=== PATIENT | female | born 1945 | race Caucasian/White ===

== ENCOUNTER → 2020-06-02 14:37 | Outpatient (BNVA) | payer MEDICARE, MEDICAID, SELFPAY | PROVIDERS: PCP Internal Medicine; Referring Provider Internal Medicine; Visit Provider Internal Medicine Cardiovascular Disease | DX: I42.9 Cardiomyopathy, unspecified (principal); I10 Essential (primary) hypertension; Z88.5 Allergy status to narcotic agent; Z88.2 Allergy status to sulfonamides; Z88.8 Allergy status to other drugs, medicaments and biological substances; Z79.82 Long term (current) use of aspirin; Z79.899 Other long term (current) drug therapy | CPT/HCPCS: 99214 ==

== ENCOUNTER 2020-06-17 09:47 | Outpatient (REF) | payer MEDICARE, MEDICAID, SELFPAY ==
[2020-06-17 12:42] LABS: Creatinine Urine 183.93 mg/dL; Microalbum/Creatinine Ratio Ur 16.3 ug/mg cr
[2020-06-17 13:40] LABS: Alanine Aminotransferase 38 U/L (0-31); Albumin Level 4.7 g/dL (3.5-5.0); Alkaline Phosphatase 121 U/L (39-117); Anion Gap 15 (12-20); Aspartate Amino Transferase 35 U/L (5-31); Bilirubin Total 0.6 mg/dL (0.0-1.0); Blood Urea Nitrogen 11 mg/dL (9-16); Calcium 9.5 mg/dL (8.4-10.2); Carbon Dioxide 26 mmol/L (22-29); Chloride 105 mmol/L (96-108); Cholesterol 243 mg/dL; Estimated Glomerular Filt Rate > 60; Glucose Fasting 103 mg/dL (60-99); HDL Cholesterol 45 mg/dL; LDL Cholesterol Calculated 169 mg/dl; Potassium 4.4 mmol/l (3.3-5.1); Sodium 142 mmol/L (135-145); Total Protein 7.6 g/dL (6.5-8.0); Triglycerides 146 mg/dL
[2020-06-17 17:43] LABS: Estimated Average Glucose 128 mg/dL; Hemoglobin A1c % 6.1 %
== END 2020-06-17 09:48 | disposition home or self-care (01) ==
LOC: HO.LAB 09:47
PROVIDERS: Visit Provider Internal Medicine
DX: E11.9 Type 2 diabetes mellitus without complications (principal); R07.89 Other chest pain
CPT/HCPCS: 80053; 80061; 82043; 83036

== ENCOUNTER → 2020-09-10 12:39 | Outpatient (REF) | payer MEDICARE, MEDICAID, SELFPAY ==
--- NOTE | 2020-09-10 12:42 | CA_ITS ---
Transthoracic Echocardiogram Patient (Last, First, Middle): Kristan Morel, Gender: Female Date of : 1945 Age: 74 Procedure Date: 09/10/2020 Procedure Type: Transthoracic Echocardiogram Location: OP Height: 157.48 cm Weight: 58.97 kg BSA: 1.59 m2 Heart Rate: bpm BP: 130 / 82 mmHg Machine Steak Tenderizer: SEAN Philip MD: Dimas Negro MD Symptoms: I42.9 - Cardiomyopathy, unspecified Study Quality: Good Conclusions: - The left ventricular systolic function is borderline reduced. The visually estimated ejection fraction is between 45-50%. - Normal right ventricular cavity size and systolic function. Findings Left Ventricle Normal left ventricular cavity size. There is mildly increased left ventricular wall thickness. The left ventricular systolic function is borderline reduced. The visually estimated ejection fraction is between 45 50%. There is no evidence of regional wall motion abnormalities. Abnormal diastolic function is noted. Spectral Doppler is indicative of an impaired relaxation filling pattern. Right Ventricle Normal right ventricular cavity size and systolic function. Atria The left atrium is normal in size. Interatrial shunt cannot be excluded. Aortic Valve Normal aortic valve structure and function. There is no aortic valve stenosis. There is no aortic valve regurgitation. Mitral Valve Normal mitral valve structure and function. There is trace mitral valve regurgitation. There is no mitral valve stenosis. Pulmonic Valve Normal pulmonic valve structure and function. There is no pulmonic valve regurgitation. Tricuspid Valve Normal tricuspid valve structure and function. There is trace tricuspid valve regurgitation. Normal right atrial pressure. There is no evidence of pulmonary hypertension. Great Vessels All visible segments of the aorta are normal in size. The visualized portions of the pulmonary artery and branches are normal. Venous The inferior vena cava is normal in size and collapses greater than 50% with inspiration. Pericardium/Pleural There is no evidence of pericardial effusion. Prior Study Comparison Changes noted compared to prior study dated: 04/12/2020. EF 45-50% now. Measurements 2D Linear Measurements IVSd: 0.95 0.6-0.9/0.6-1.0 cm LVIDd: 4.45 3.9-5.3/4.2-5.9 cm LVIDd Index: 2.80 2.4-3.2/2.2-3.1 cm/m2 LVIDs: 3.34 2.0-3.6 cm LVPWd: 0.95 0.7-1.1 cm Ao Root: 2.80 2.1-3.5 cm LA Diam: 3.20 2.7-3.8/3.0-4.0 cm LAIDs Index: 2.01 1.5-2.3 cm/m2 LV Mass: 174.02 67-162/88-224 g LV Mass Index: 109.44 43-95/49-115 g/m2 LVOT Diam: 2.00 3.0+(-)1.3 cm 2D Systolic Function EF 4C: 45.40 >55% EF 2C: 53.20 >55% EF BiP: 49.20 >55% Mitral Valve E'Lateral: 4.13 E'Medial: 3.70 Aortic Valve AoV Pk Vincent: 1.53 AoV Mn Vincent: 1.04 AoV VTI: 0.28 AoV Pk Grad: 9.00 Aov Mn Grad: 5.00 MAHESH Cont.VTI: 1.85 LVOT LVOT Pk Vincent: 0.95 LVOT Mn Vincent: 0.61 LVOT VTI: 0.17 LVOT Pk Grad: 4.00 LVOT Mn Grad: 2.00 LVOT Diam: 2.00 LVOT Area: 3.14 Diastolic Function E'Medial: 3.70 E' Laterial: 4.13 Tricuspid Valve TR Pk Vincent: 2.50 TR Pk Grad: 25.00 RA Press: 3.00 RVSP: 28.00 Great Vessels Aorta Ao Root-2D: 2.80 2.0-3.7 cm Ao Asc: 3.10 2.1-3.4 cm Ao Arch: 2.30 Updated in Other Vendor System with Status of Final Dimas Negro MD electronically signed on 09/11/2020 7:18:41 PM with status of Final
== END ==
LOC: HO.CARD 12:39
PROVIDERS: Visit Provider Internal Medicine Cardiovascular Disease
DX: I42.9 Cardiomyopathy, unspecified (principal)
CPT/HCPCS: 93306

== ENCOUNTER 2020-09-22 07:43 | Outpatient (REF) | payer MEDICARE, MEDICAID, SELFPAY ==
[2020-09-22 09:22] LABS: Alanine Aminotransferase 20 U/L (0-31); Albumin Level 4.6 g/dL (3.5-5.0); Alkaline Phosphatase 108 U/L (39-117); Anion Gap 15 (12-20); Aspartate Amino Transferase 26 U/L (5-31); Bilirubin Total 0.8 mg/dL (0.0-1.0); Blood Urea Nitrogen 12 mg/dL (9-16); Calcium 10.2 mg/dL (8.4-10.2); Carbon Dioxide 29 mmol/L (22-29); Chloride 101 mmol/L (96-108); Cholesterol 147 mg/dL; Estimated Glomerular Filt Rate > 60; Glucose Random 119 mg/dL (60-115); HDL Cholesterol 57 mg/dL; LDL Cholesterol Calculated 73 mg/dl; Potassium 4.2 mmol/L (3.3-5.1); Sodium 141 mmol/L (135-145); Total Protein 7.6 g/dL (6.5-8.0); Triglycerides 86 mg/dL
[2020-09-22 09:40] LABS: Estimated Average Glucose 126 mg/dL; Hemoglobin A1C 150.9652 umol/L
[2020-09-22 09:43] LABS: Thyroid Stimulating Hormone 2.03 uIU/mL (0.32-4.0)
[2020-09-22 09:46] LABS: Vitamin B12 388 pg/mL (200-900)
== END 2020-09-22 07:44 | disposition home or self-care (01) ==
LOC: HO.LAB 07:43
PROVIDERS: PCP Internal Medicine; Visit Provider Internal Medicine
DX: E11.9 Type 2 diabetes mellitus without complications (principal); E78.00 Pure hypercholesterolemia, unspecified; F41.8 Other specified anxiety disorders; R63.0 Anorexia; R63.4 Abnormal weight loss
CPT/HCPCS: 36415; 80053; 80061; 82607; 83036; 84443

== ENCOUNTER → 2020-09-29 12:48 | Outpatient (BNVA) | payer MEDICARE, MEDICAID, SELFPAY | PROVIDERS: PCP Internal Medicine; Visit Provider Internal Medicine Cardiovascular Disease | DX: I42.9 Cardiomyopathy, unspecified (principal); I10 Essential (primary) hypertension | CPT/HCPCS: 93005; 99212 ==

== ENCOUNTER 2020-10-04 08:36 | Outpatient (REF) | payer MEDICARE, MEDICAID, SELFPAY ==
--- NOTE | ~2020-10-04 | MM_ITS ---
EXAMINATION: MM DIAGNOSTIC DIGITAL BREAST TOMOSYNTHESIS, LEFT CLINICAL INFORMATION: Short interval six-month probable benign fibroglandular densities upper outer left breast. Assess for developing density. The lifetime risk of breast cancer based on the Tyrer-Cuzick Model is 2%. COMPARISON: Mammography: 03/31/2020, 03/19/2020 (BI-RADS 0), 03/14/2019, 01/28/2018, 01/25/2017; ultrasound left breast 03/31/2020. TECHNIQUE: Digital breast tomosynthesis is performed in both the craniocaudal and mediolateral oblique views along with computer-aided detection (CAD). Synthesized 2D images are generated from the tomosynthesis. FINDINGS: There are scattered areas of fibroglandular density (ACR BI-RADS breast composition Category b). Parenchymal pattern is similar to prior studies. There is no interval developing density or mass or architectural abnormality from prior diagnostic exam. There are no abnormal calcifications. The axilla and skin contours are unremarkable. Left breast will be reassessed again at time of annual bilateral mammography, due in 6 months. Results are provided to the patient at time of visit by the technologist. MM/MM tomosynthesis diagnostic LT IMPRESSION: No significant changes from prior studies. No developing density. ASSESSMENT: BI-RADS 3: Probably Benign RECOMMENDATION: Diagnostic mammography at time of annual bilateral exam, due in 6 months. This patient's information was entered into a reminder system with a target due date for their next mammogram.
== END 2020-10-04 08:37 | disposition home or self-care (01) ==
LOC: HO.MAMMO 08:36
PROVIDERS: PCP Internal Medicine; Visit Provider Internal Medicine
DX: R92.2 Inconclusive mammogram (principal)
CPT/HCPCS: 77061; 77065

== ENCOUNTER 2020-11-19 13:48 | Outpatient (REF) | payer MEDICARE, MEDICAID, SELFPAY | END 2020-11-19 13:49 | disposition home or self-care (01) | LOC: HO.LAB 13:48 | PROVIDERS: Visit Provider Internal Medicine | DX: Z20.822 Contact with and (suspected) exposure to COVID-19 (principal) | CPT/HCPCS: C9803; U0003; U0005 ==

== ENCOUNTER → 2021-02-02 12:50 | Outpatient (BNVA) | payer MEDICARE, MEDICAID, SELFPAY | PROVIDERS: PCP Internal Medicine; Referring Provider Internal Medicine; Visit Provider Internal Medicine Cardiovascular Disease | DX: I42.9 Cardiomyopathy, unspecified (principal); I10 Essential (primary) hypertension; R07.9 Chest pain, unspecified; R06.00 Dyspnea, unspecified; Z88.5 Allergy status to narcotic agent; Z88.2 Allergy status to sulfonamides; Z79.82 Long term (current) use of aspirin; Z79.899 Other long term (current) drug therapy | CPT/HCPCS: 99212 ==

== ENCOUNTER 2021-03-21 09:10 | Outpatient (REF) | payer MEDICARE, MEDICAID, SELFPAY ==
[2021-03-21 10:07] LABS: MANUAL DIFF FLAG NO
[2021-03-21 10:13] LABS: Basophils Absolute Auto 0.1 X10*3/uL (0.0-0.2); Basophils Percent Auto 0.6 % (0-2); Eosinophils Absolute Auto 0.1 X10*3/uL (0.0-0.4); Eosinophils Percent Auto 1.4 % (0-4); Hemoglobin 14.6 g/dl (12.0-16.0); Imm Gran Abs Auto 0.03 X10*3/uL (0.00-0.03); Imm Gran Pct Auto 0.3 % (0.0-0.4); Lymphocytes Absolute Auto 2.4 X10*3/uL (1.2-4.9); Mean Corpuscular HGB Conc 32.4 g/dl (31.0-35.0); Mean Corpuscular Hemoglobin 29.9 pg (27.0-33.0); Mean Platelet Volume 9.7 fL (9.4-12.3); Monocytes Absolute Auto 0.8 X10*3/uL (0.1-1.2); Neutrophils Absolute Auto 6.6 X10*3/uL (2.0-8.3); Neutrophils Percent Auto 65.7 % (45-73); Platelet Count 329 X10*3/uL (160-400); Red Blood Count 4.89 X10*6/uL (4.20-5.50); Red Cell Distribution Width 13.9 % (11.0-16.0); White Blood Count 10.1 X10*3/uL (4.8-10.8)
[2021-03-21 10:35] LABS: Alanine Aminotransferase 17 U/L (0-31); Albumin Level 4.5 g/dL (3.5-5.0); Alkaline Phosphatase 81 U/L (39-117); Anion Gap 12 (12-20); Aspartate Amino Transferase 25 U/L (5-31); Bilirubin Total 0.4 mg/dL (0.0-1.0); Blood Urea Nitrogen 19 mg/dL (9-16); Carbon Dioxide 29 mmol/L (22-29); Chloride 105 mmol/L (96-108); Cholesterol 144 mg/dL; Estimated Average Glucose 120 mg/dL; Estimated Glomerular Filt Rate > 60; Glucose Random 110 mg/dL (60-115); HDL Cholesterol 53 mg/dL; Hemoglobin A1C 149.2109 umol/L; Hemoglobin A1c % 5.8 %; LDL Cholesterol Calculated 78 mg/dl; Potassium 4.2 mmol/L (3.3-5.1); Sodium 142 mmol/L (135-145); Total Protein 7.4 g/dL (6.5-8.0); Triglycerides 69 mg/dL
[2021-03-21 10:46] LABS: Creatinine Urine 178.32 mg/dL; Microalbum/Creatinine Ratio Ur 24.1 ug/mg cr
== END 2021-03-21 09:11 | disposition home or self-care (01) ==
LOC: HO.LAB 09:10
PROVIDERS: PCP Internal Medicine; Visit Provider Internal Medicine
DX: E11.9 Type 2 diabetes mellitus without complications (principal); E78.00 Pure hypercholesterolemia, unspecified; F33.40 Major depressive disorder, recurrent, in remission, unspecified; I10 Essential (primary) hypertension
CPT/HCPCS: 36415; 80053; 80061; 82043; 83036; 85025

== ENCOUNTER 2021-04-07 12:57 | Outpatient (REF) | payer MEDICARE, MEDICAID, SELFPAY ==
--- NOTE | ~2021-04-07 | MM_ITS ---
EXAMINATION: MM DIAGNOSTIC DIGITAL BREAST TOMOSYNTHESIS, BILATERAL CLINICAL INFORMATION: Due for yearly. Also follow-up probable benign fibronodular densities upper outer left breast. The lifetime risk of breast cancer based on the Tyrer-Cuzick Model is 2%. COMPARISON: Mammography: 10/04/2020, 03/31/2020, 03/19/2020 (BI-RADS 0), 03/14/2019, 01/28/2018, 01/25/2017; targeted left breast ultrasound 03/31/2020. TECHNIQUE: Digital breast tomosynthesis is performed in both the craniocaudal and mediolateral oblique views along with computer-aided detection (CAD). Synthesized 2D images are generated from the tomosynthesis. FINDINGS: There are scattered areas of fibroglandular density (ACR BI-RADS breast composition Category b). Breast parenchymal pattern is similar to prior exams. Scattered fibronodular asymmetries upper outer left breast and central inner left breast are similar to prior diagnostic studies. There is no developing density. Left breast will be reassessed again in 6 months. Neither breast shows interval mass or architectural abnormality. There are no abnormal calcifications. The skin contours are smooth. Results are provided to the patient at time of visit by the technologist. MM/MM tomosynthesis diagnostic BI IMPRESSION: No significant changes from prior exams. ASSESSMENT: BI-RADS 3: Probably Benign RECOMMENDATION: Diagnostic left mammography in 6 months. This patient's information was entered into a reminder system with a target due date for their next mammogram.
== END 2021-04-07 12:58 | disposition home or self-care (01) ==
LOC: HO.MAMMO 12:57
PROVIDERS: Visit Provider Internal Medicine
DX: R92.2 Inconclusive mammogram (principal)
CPT/HCPCS: 77062; 77066

== ENCOUNTER → 2021-07-27 13:39 | Outpatient (BNVA) | payer MEDICARE, MEDICAID, SELFPAY | PROVIDERS: PCP Internal Medicine; Visit Provider Internal Medicine Cardiovascular Disease | DX: I10 Essential (primary) hypertension (principal); I42.9 Cardiomyopathy, unspecified | CPT/HCPCS: 99212 ==

== ENCOUNTER → 2021-09-09 09:11 | Outpatient (REF) | payer MEDICARE, MEDICAID, SELFPAY ==
--- NOTE | 2021-09-09 09:15 | CA_ITS ---
Transthoracic Echocardiogram Patient (Last, First, Middle): Kristan Morel, Gender: Female Date of : 1945 Age: 75 Procedure Date: 09/09/2021 Procedure Type: Transthoracic Echocardiogram Location: OP Height: 149.86 cm Weight: 56.25 kg BSA: 1.50 m2 Heart Rate: bpm BP: 116 / 60 mmHg Yard Attendant: Referring MD: Dimas Negro MD Systems Developer: Lamonte Delgado MD Symptoms: I42.9 - Cardiomyopathy, unspecified Study Quality: Fair ECG Rhythm: Sinus Conclusions: - 1. Mild to moderate LV systolic dysfunction with LVEF of 40-45% 2. Moderate left atrial enlargement 3. Mild to moderate mitral regurgitation 4. Normal RVSp 5. No pericardial effusion Findings Left Ventricle Normal left ventricular cavity size. There is normal left ventricular wall thickness. The left ventricular systolic function is mild to moderately decreased. The visually estimated ejection fraction is between 40-45%. Spectral Doppler is indicative of an impaired relaxation filling pattern. Elevated filling pressures. E/E prime ratio is >15, consistent with elevated filling pressures. Right Ventricle Normal right ventricular cavity size and systolic function. Atria The left atrium is moderately dilated. There is no evidence of interatrial shunt. The right atrium is mildly dilated. Aortic Valve Normal aortic valve structure and function. There is no aortic valve stenosis. There is no aortic valve regurgitation. Mitral Valve Normal mitral valve structure and function. There is mild to moderate mitral valve regurgitation. There is no mitral valve stenosis. Pulmonic Valve The pulmonic valve was not well visualized. Tricuspid Valve Normal tricuspid valve structure. There is mild tricuspid valve regurgitation. Normal right atrial pressure. There is no evidence of pulmonary hypertension. Great Vessels All visible segments of the aorta are normal in size. The pulmonary artery was not well visualized. Venous The inferior vena cava is normal in size and collapses greater than 50% with inspiration. Pericardium/Pleural There is no evidence of pericardial effusion. Prior Study Comparison Changes noted compared to prior study dated: 09/10/2020. LV systolic function is reduced Measurements 2D Linear Measurements IVSd: 1.16 0.6-0.9/0.6-1.0 cm LVIDd: 5.22 3.9-5.3/4.2-5.9 cm LVIDd Index: 3.48 2.4-3.2/2.2-3.1 cm/m2 LVIDs: 4.47 2.0-3.6 cm LVPWd: 1.13 0.7-1.1 cm Ao Root: 2.70 2.1-3.5 cm LA Diam: 4.00 2.7-3.8/3.0-4.0 cm LAIDs Index: 2.67 1.5-2.3 cm/m2 LV Mass: 292.58 67-162/88-224 g LV Mass Index: 195.05 43-95/49-115 g/m2 LVOT Diam: 1.90 3.0+(-)1.3 cm 2D Systolic Function EF 4C: 39.70 >55% EF 2C: 43.60 >55% EF BiP: 42.70 >55% Mitral Valve MV Pk E: 0.90 MV PK A: 1.10 MV Decel Time: 80.00 E/A: 0.80 E'Lateral: 4.57 E'Medial: 3.81 E/E' Med: 23.60 E/E' Lat: 19.70 PHT: 23.00 MVA PHT: 9.57 Decel [place]: 11.25 Aortic Valve AoV Pk Vincent: 1.40 AoV Mn Vincent: 0.94 AoV VTI: 0.31 AoV Pk Grad: 8.00 Aov Mn Grad: 4.00 MAHESH Cont.VTI: 1.55 LVOT LVOT Pk Vincent: 0.77 LVOT Mn Vincent: 0.50 LVOT VTI: 0.17 LVOT Pk Grad: 2.00 LVOT Mn Grad: 1.00 LVOT Diam: 1.90 LVOT Area: 2.84 Diastolic Function MV Pk E: 0.90 MV Pk A: 1.10 E/A: 0.80 E'Medial: 3.81 E/E' Med: 23.60 E' Laterial: 4.57 E/E' Lat: 19.70 Tricuspid Valve TR Pk Vincent: 2.75 TR Pk Grad: 30.00 RA Press: 3.00 RVSP: 33.00 Great Vessels Aorta Ao Root-2D: 2.70 2.0-3.7 cm Ao Asc: 3.30 2.1-3.4 cm Pulmonary Valve PV Pk Vincent: 0.94 Peak PV Grad: 4.00 Updated in Other Vendor System with Status of Final Lamonte Delgado MD electronically signed on 09/10/2021 10:21:32 AM with status of Final
== END ==
LOC: HO.CARD 09:11
PROVIDERS: PCP Internal Medicine; Visit Provider Internal Medicine Cardiovascular Disease
DX: I42.9 Cardiomyopathy, unspecified (principal)
CPT/HCPCS: 93306

== ENCOUNTER 2021-09-22 06:38 | Outpatient (REF) | payer MEDICARE, MEDICAID, SELFPAY | END 2021-09-22 06:39 | disposition home or self-care (01) | LOC: HO.HOSX 06:38 | PROVIDERS: Visit Provider Physician Assistant | DX: Z13.89 Encounter for screening for other disorder (principal) ==

== ENCOUNTER 2021-10-10 12:32 | Outpatient (REF) | payer MEDICARE, MEDICAID, SELFPAY ==
--- NOTE | ~2021-10-10 | MM_ITS ---
EXAMINATION: MM DIAGNOSTIC DIGITAL BREAST TOMOSYNTHESIS, LEFT CLINICAL INFORMATION: Short interval follow-up probable benign fibronodular densities upper outer and central inner left breast. The lifetime risk of breast cancer based on the Tyrer-Cuzick Model is 2%. COMPARISON: Mammography: 04/07/2021, 10/04/2020, 03/31/2020, 03/19/2020 (BI-RADS 0), 03/14/2019, targeted left breast ultrasound 03/31/2020. TECHNIQUE: Digital breast tomosynthesis is performed in both the craniocaudal and mediolateral oblique views along with computer-aided detection (CAD). Synthesized 2D images are generated from the tomosynthesis. FINDINGS: There are scattered areas of fibroglandular density (ACR BI-RADS breast composition Category b). Parenchymal pattern is similar to prior exams. Scattered fibronodular densities are similar to prior diagnostic exams. There is no developing density or interval mass or architectural abnormality. No abnormal calcifications. The axilla and skin contours are unremarkable. Left breast will be reassessed again at time of annual bilateral mammography, due in 6 months to conclude long-term surveillance. Results are provided to the patient at time of visit by the technologist. MM/MM tomosynthesis diagnostic LT IMPRESSION: No significant changes from prior diagnostic studies. No developing density. ASSESSMENT: BI-RADS 3: Probably Benign RECOMMENDATION: Diagnostic mammography at time of annual bilateral mammography, due in 6 months. This patient's information was entered into a reminder system with a target due date for their next mammogram.
== END 2021-10-10 12:33 | disposition home or self-care (01) ==
LOC: HO.MAMMO 12:32
PROVIDERS: PCP Internal Medicine; Visit Provider Internal Medicine
DX: R92.2 Inconclusive mammogram (principal)
CPT/HCPCS: 77061; 77065

== ENCOUNTER → 2021-10-20 13:39 | Outpatient (BNVA) | payer MEDICARE, MEDICAID, SELFPAY | PROVIDERS: PCP Internal Medicine; Referring Provider Internal Medicine; Visit Provider Internal Medicine Cardiovascular Disease | DX: I42.9 Cardiomyopathy, unspecified (principal); I10 Essential (primary) hypertension | CPT/HCPCS: 99212 ==

== ENCOUNTER 2021-10-21 07:41 | Outpatient (REF) | payer MEDICARE, MEDICAID, SELFPAY ==
--- NOTE | ~2021-10-21 | XR_ITS ---
EXAMINATION: XR SHOULDER, LEFT CLINICAL INFORMATION: Left shoulder pain. COMPARISON: Left scapular radiographs dated 12/09/2013. TECHNIQUE: AP, scapular Y, and axillary views of the left shoulder. FINDINGS: No acute fracture or dislocation. Acromioclavicular marginal osteophytes with prominent subacromial spurring. Small inferior glenoid marginal osteophytes. Elevation of the humeral head, likely indicating an underlying rotator cuff tendon tear. No concerning lytic or blastic osseous lesion. XR/XR shoulder LT min 2V IMPRESSION: 1. Moderate acromioclavicular osteoarthritis with prominent subacromial spurring. 2. Mild glenohumeral osteoarthritis. Elevation of the humeral head, likely indicating underlying rotator cuff tendon tear.
== END 2021-10-21 07:42 | disposition home or self-care (01) ==
LOC: HO.HOSX 07:41
PROVIDERS: Visit Provider Physician Assistant
DX: M19.012 Primary osteoarthritis, left shoulder (principal)
CPT/HCPCS: 20610; 73030; 99202; J1040

== ENCOUNTER 2021-11-21 09:06 | Outpatient (REF) | payer MEDICARE, MEDICAID, SELFPAY ==
[2021-11-21 10:19] LABS: Estimated Average Glucose 131 mg/dL; Hemoglobin A1c % 6.2 %
[2021-11-21 10:20] LABS: Alanine Aminotransferase 20 U/L (0-31); Albumin Level 4.3 g/dL (3.5-5.0); Alkaline Phosphatase 74 U/L (39-117); Anion Gap 12 (12-20); Aspartate Amino Transferase 21 U/L (5-31); Bilirubin Total 0.3 mg/dL (0.0-1.0); Blood Urea Nitrogen 17 mg/dL (9-16); Calcium 9.8 mg/dL (8.4-10.2); Carbon Dioxide 28 mmol/L (22-29); Chloride 105 mmol/L (96-108); Estimated Glomerular Filt Rate > 60; Glucose Random 123 mg/dL (60-115); Potassium 4.6 mmol/L (3.3-5.1); Sodium 140 mmol/L (135-145); Total Protein 7.2 g/dL (6.5-8.0)
== END 2021-11-21 09:07 | disposition home or self-care (01) ==
LOC: HO.LAB 09:06
PROVIDERS: PCP Internal Medicine; Visit Provider Internal Medicine
DX: E11.9 Type 2 diabetes mellitus without complications (principal); E78.00 Pure hypercholesterolemia, unspecified; I10 Essential (primary) hypertension; M25.512 Pain in left shoulder
CPT/HCPCS: 36415; 80053; 83036

== ENCOUNTER 2021-11-30 09:54 | Outpatient (REF) | payer MEDICARE, MEDICAID, SELFPAY ==
--- NOTE | ~2021-11-30 | MR_ITS ---
EXAMINATION: MRI SHOULDER WITHOUT CONTRAST, LEFT CLINICAL INFORMATION: Shoulder pain. Patient reports no prior left shoulder surgery.. COMPARISON: X-ray 10/21/2021. MRI 11/03/2011. TECHNIQUE: MRI of the shoulder without contrast is performed in a 1.5 Antonette high-field scanner. FINDINGS: Motion artifact degrading images, limiting evaluation. CORACOACROMIAL ARCH: Moderate acromioclavicular arthritis. There is fluid in the subacromial subdeltoid space. Undersurface of the acromion is concave. ROTATOR CUFF: Full-thickness tear of the entire supraspinatus and infraspinatus tendons. Tendon retraction to the level of the glenoid. Teres minor is intact. Thinning of the subscapularis tendon. There is laxity of the tendon seen, which may be related to humeral positioning. ROTATOR CUFF MUSCLES: Myotendinous retraction of the supraspinatus and infraspinatus, with associated atrophy. Atrophy of the subscapularis muscles.. BICEPS TENDON: Not visualized, suggestive of high-grade or full-thickness tear. LABRUM/CAPSULE: Motion artifact limiting evaluation. There is small caliber of the labrum. Superior labrum free edge fraying/tearing. GLENOHUMERAL JOINT/MARROW: Superior subluxation of the humeral head respect to glenoid. Subcortical cyst/edema in the greater tuberosity.. Small effusion. MR/MR shoulder LT wo con IMPRESSION: 1. Complete tears of the supraspinatus and infraspinatus tendons with retraction. 2. Subscapularis tendon thinning. There is laxity of the tendon, which could be related to distal tearing versus positioning of the humeral head. 3. Biceps tendon likely high-grade or full-thickness tear. 4. Superior labral small caliber, with free edge fraying/tearing. 5. Moderate acromioclavicular arthritis.
== END 2021-11-30 09:55 | disposition home or self-care (01) ==
LOC: HO.MRI 09:54
PROVIDERS: Visit Provider Physician Assistant
DX: S46.002D Unspecified injury of muscle(s) and tendon(s) of the rotator cuff of left shoulder, subsequent encounter (principal)
CPT/HCPCS: 73221

== ENCOUNTER → 2021-12-05 13:31 | Outpatient (BNVA) | payer MEDICARE, MEDICAID, SELFPAY | PROVIDERS: PCP Internal Medicine; Visit Provider Physician Assistant | DX: M19.012 Primary osteoarthritis, left shoulder (principal); M75.102 Unspecified rotator cuff tear or rupture of left shoulder, not specified as traumatic | CPT/HCPCS: 99212 ==

== ENCOUNTER 2022-02-18 09:28 | Outpatient (REF) | payer MEDICARE, MEDICAID, SELFPAY ==
[2022-02-18 09:38] LABS: MANUAL DIFF FLAG NO
[2022-02-18 09:56] LABS: Basophils Absolute Auto 0.1 X10*3/uL (0.0-0.2); Basophils Percent Auto 0.6 % (0-2); Eosinophils Absolute Auto 0.2 X10*3/uL (0.0-0.4); Hematocrit 44.2 % (37.0-47.0); Hemoglobin 14.6 g/dl (12.0-16.0); Imm Gran Abs Auto 0.02 X10*3/uL (0.00-0.03); Imm Gran Pct Auto 0.2 % (0.0-0.4); Lymphocytes Absolute Auto 2.3 X10*3/uL (1.2-4.9); Lymphocytes Percent Auto 25.3 % (20-40); Mean Corpuscular Hemoglobin 30.1 pg (27.0-33.0); Mean Corpuscular Volume 91.1 fL (80.0-98.0); Mean Platelet Volume 9.5 fL (9.4-12.3); Monocytes Absolute Auto 0.6 X10*3/uL (0.1-1.2); Monocytes Percent Auto 6.6 % (2-11); Neutrophils Absolute Auto 5.9 x10*3/uL (2.0-8.3); Neutrophils Percent Auto 65.3 % (45-73); Platelet Count 332 X10*3/uL (160-400); Red Blood Count 4.85 X10*6/uL (4.20-5.50)
[2022-02-18 10:05] LABS: Estimated Average Glucose 123 mg/dL; Hemoglobin A1c % 5.9 %
[2022-02-18 10:16] LABS: Alanine Aminotransferase 33 U/L (0-31); Albumin Level 4.6 g/dL (3.5-5.0); Alkaline Phosphatase 72 U/L (39-117); Anion Gap 14 (12-20); Aspartate Amino Transferase 30 U/L (5-31); Bilirubin Total 0.6 mg/dL (0.0-1.0); Blood Urea Nitrogen 19 mg/dL (9-16); Calcium 9.9 mg/dL (8.4-10.2); Carbon Dioxide 23 mmol/L (22-29); Chloride 106 mmol/L (96-108); Cholesterol 192 mg/dL; Estimated Glomerular Filt Rate > 60; Glucose Random 119 mg/dL (60-115); HDL Cholesterol 46 mg/dL; LDL Cholesterol Calculated 124 mg/dl; Potassium 4.1 mmol/L (3.3-5.1); Sodium 139 mmol/L (135-145); Total Protein 7.5 g/dL (6.5-8.0); Triglycerides 113 mg/dL
== END 2022-02-18 09:29 | disposition home or self-care (01) ==
LOC: HO.LAB 09:28
PROVIDERS: PCP Internal Medicine; Visit Provider Internal Medicine
DX: E11.9 Type 2 diabetes mellitus without complications (principal); H93.13 Tinnitus, bilateral; I10 Essential (primary) hypertension; L84 Corns and callosities
CPT/HCPCS: 36415; 80053; 80061; 83036; 85025

== ENCOUNTER → 2022-04-12 13:31 | Outpatient (BNVA) | payer MEDICARE, MEDICAID, SELFPAY | PROVIDERS: PCP Internal Medicine; Referring Provider Internal Medicine; Visit Provider Nurse Practitioner Family | DX: R07.89 Other chest pain (principal); I42.8 Other cardiomyopathies; I10 Essential (primary) hypertension; I44.7 Left bundle-branch block, unspecified; M19.012 Primary osteoarthritis, left shoulder | CPT/HCPCS: 93005; 99212 ==

== ENCOUNTER 2022-04-14 12:32 | Outpatient (REF) | payer MEDICARE, MEDICAID, SELFPAY ==
--- NOTE | ~2022-04-14 | MM_ITS ---
EXAMINATION: MM DIAGNOSTIC DIGITAL BREAST TOMOSYNTHESIS, BILATERAL CLINICAL INFORMATION: Due for yearly. Also follow-up probable benign nodularity upper outer left breast. The lifetime risk of breast cancer based on the Tyrer-Cuzick Model is 2%. COMPARISON: Mammography: 10/10/2021, 04/07/2021, 10/04/2020, 03/31/2020, 03/19/2020 (BI-RADS 0), 03/14/2019, 01/28/2018; left breast ultrasound 03/31/2020. TECHNIQUE: Digital breast tomosynthesis is performed in both the craniocaudal and mediolateral oblique views along with computer-aided detection (CAD). Synthesized 2D images are generated from the tomosynthesis. FINDINGS: There are scattered areas of fibroglandular density (ACR BI-RADS breast composition Category b). There is fine fibronodular parenchymal pattern similar to prior exams. Nodularity mid upper outer left breast is stable from prior exams and considered to be benign. There is no developing density or interval architectural changes. No abnormal calcifications. The axilla and skin contours are unremarkable. Results are provided to the patient at time of visit by the technologist. MM/MM tomosynthesis diagnostic BI IMPRESSION: No significant changes from prior studies. ASSESSMENT: BI-RADS 2: Benign RECOMMENDATION: Routine annual mammography screening. This patient's information was entered into a reminder system with a target due date for their next mammogram.
== END 2022-04-14 12:33 | disposition home or self-care (01) ==
LOC: HO.MAMMO 12:32
PROVIDERS: PCP Internal Medicine; Visit Provider Internal Medicine
DX: R92.2 Inconclusive mammogram (principal)
CPT/HCPCS: 77062; 77066

== ENCOUNTER 2022-04-21 07:47 | Emergency (ER) | payer MEDICARE, MEDICAID, SELFPAY ==
[2022-04-21 07:53] VITALS: BP 163/91; PULSE 91; RESP 16; TEMP 36.4; O2SAT 96; BMI 22.8
--- NOTE | 2022-04-21 08:54 | ED.ALLEREA ---
HPI - Allergic Reaction General Chief complaint: Allergic Reaction Stated complaint: allergic reaction Time Seen by Provider: 04/21/22 08:52 Source: patient and freelance interpreter/translator Mode of arrival: ambulatory Limitations: language barrier History of Present Illness HPI narrative: 76 yo female with history of HTN presents 2 days of itching rash to the face, arms, neck. Patient denies any new products, detergents, foods or medications. She is using calamine, [id number] itch cream and Benadryl with continued symptoms. Denies any difficulty breathing, cough, wheezing, abdominal cramping, vomiting or diarrhea Related Data Home Medications Medication Instructions Recorded Confirmed amlodipine 10 mg tablet 10 mg PO DAILY 06/02/20 04/14/22 metoprolol succinate 100 mg 100 mg PO DAILY 06/02/20 04/14/22 tablet,extended release 24 hr nitroglycerin 0.4 mg sublingual 0.4 mg sublingual Q5M PRN 06/02/20 04/14/22 tablet rosuvastatin 40 mg tablet 40 mg PO BEDTIME 06/02/20 04/14/22 losartan 100 1 tab PO DAILY 04/12/22 04/14/22 mg-hydrochlorothiazide 25 mg tablet Previous Rx's Medication Instructions Recorded aspirin 81 mg tablet,delayed 81 mg PO .daily #90 tabs 03/27/22 release hydrocortisone 2.5 % topical 1 appl topical TID PRN rash #28.35 04/21/22 ointment grams prednisone 20 mg tablet 40 mg PO DAILY #10 tabs 04/21/22 Allergies Allergy/AdvReac Type Severity Reaction Status Date / Time codeine Allergy Unknown UNKNOWN Verified 04/12/22 13:50 Sulfa (Sulfonamide Allergy Unknown RASH Verified 04/12/22 13:50 Antibiotics) FAREED Inhibitors AdvReac Unknown UNKNOWN Verified 04/12/22 13:50 Review of Systems Review of Systems: Yes all other systems are reviewed and are negative Constitutional: Constitutional: Reports no additional constitutional complaints, Denies body ache(s), Denies chills, Denies fever(s), Denies headache(s) and Denies weakness Eyes: Eyes: Reports no additional eye complaints and Denies change in vision ENT: Reports system reviewed and no additional complaints, except as documented, Denies dizziness, Denies headache(s), Denies nasal congestion, Denies nasal discharge and Denies neck pain Cardiovascular: Cardiovascular: Reports no additional cardiovascular complaints, Denies chest pain, Denies leg edema and Denies dyspnea Respiratory: Respiratory: Reports no additional respiratory complaints, Denies cough and Denies dyspnea Gastrointestinal: Gastrointestinal: Reports no additional gastrointestinal complaints, Denies abdominal pain, Denies diarrhea, Denies nausea and Denies vomiting Genitourinary: Genitourinary: Reports no additional female genitourinary complaints and Denies urinary incontinence Musculoskeletal: Musculoskeletal: Reports no additional musculoskeletal complaints, Denies back pain, Denies arthralgias, Denies joint swelling, Denies neck pain, Denies numbness and Denies tingling Integumentary/Breasts: Skin/Breast: Reports system reviewed and no additional complaints, except as docu and Reports rash Neurologic: Reports system reviewed and no additional complaints, except as documented, Denies dizziness, Denies headache(s), Denies numbness, Denies tingling and Denies weakness PMFSH Past Medical History Attestation statement: The following information was validated with the patient. Source: old records reviewed and nursing notes reviewed Medical History Cardiomyopathy Hypertension Surgical History History of section History of eye surgery Family History Family History Father Cardiovascular disease Mother No problems noted. Social History Social History Alcohol intake: never Patient Tobacco Use Status: Never used Tobacco Advance Directives: No Advance Directives Information Provided: Yes Current occupational status: disabled Current occupation: rt hand Physical Exam ED Vital Signs: Vital Signs - 24 hr 04/21/22 07:53 Temperature 97.5 F Pulse Rate 91 Respiratory Rate 16 Blood Pressure 163/91 H Pulse Oximetry 96 Oxygen Delivery Method Room Air BMI result Body Mass Index 22.8 Const General: cooperative, healthy appearing and comfortable Orientation/consciousness: patient oriented x3 Limitations: no limitations HENMT Other: Over the face including the ears and nose, anterior neck, posterior neck, upper arm there is a slight urticarial rash noted which is blanchable, nonpainful, non vesicular. Head: Yes normal to inspection Ears: hearing grossly normal bilaterally Mouth: Normal oral and palatal mucosa present, lip normal and tongue normal Throat: Yes posterior oropharynx normal, Yes tonsils normal and Yes uvula midline Eyes General: appearance normal, both eyes and all related structures Pupils: Equal, round and reactive pupils present Neck Other: no stridor Neck: Yes normal visual inspection Chest Chest palpation & inspection: normal inspection of the chest Resp Effort & Inspection: normal respiratory effort Auscultation: clear to auscultation bilaterally Cardio Rate: regular rate Rhythm: regular rhythm Peripheral pulses: Peripheral pulses 2+ throughout GI Inspection: Yes normal to inspection Palpation (GI): Soft to palpation and nontender Back/Spine/Pelvis Thoracic/Lumbar Spine: thoracic and lumbar spine normal to inspection Skin General skin exam: no rashes or lesions noted Neuro General: patient oriented x3 and moves all extremities Cranial nerves: Yes Equal, round and reactive pupils present Cognition (Neuro): normal cognition Gait exam (Neuro): Normal gait present Extrem General: Yes normal to inspection MDM - Allergic Reaction MDM Narrative Medical decision making narrative: Urticarial rash for 2 days despite using [id number] itch cream, p.r.n. Benadryl, calamine. No airway involvement. Lungs are clear. Will give brief course of prednisone, prescription hydrocortisone. Medical Records Attestation: I reviewed the patient's medical records. Lab Data Attestation: I reviewed the patient's lab results. Discharge Plan Discharge Clinical Impression: Contact dermatitis Patient Disposition: Home, Self-Care Instructions: Contact Dermatitis (ED) Additional Instructions: Continue benadryl Follow-up with PCP next week for persistent symptoms Prescriptions: New prednisone 20 mg tablet 40 mg PO DAILY Qty: 10 0RF hydrocortisone 2.5 % ointment 1 appl topical TID PRN (Reason: rash) Qty: 28.35 0RF No Action aspirin 81 mg tablet,delayed release (DR/EC) 81 mg PO .daily Qty: 90 3RF rosuvastatin 40 mg tablet 40 mg PO BEDTIME amlodipine 10 mg tablet 10 mg PO DAILY metoprolol succinate 100 mg tablet extended release 24 hr 100 mg PO DAILY nitroglycerin 0.4 mg tablet, sublingual 0.4 mg sublingual Q5M PRN Rx Instructions: do not exceed 3 doses per episode losartan-hydrochlorothiazide 100-25 mg tablet 1 tab PO DAILY Referrals: Anju Lockett MD [Primary Care Provider] - Print Language: Korean
== END 2022-04-21 09:44 | disposition home or self-care (01) ==
PROVIDERS: Emergency Provider Student in an Organized Health Care Education/Training Program; PCP Internal Medicine
DX: L25.3 Unspecified contact dermatitis due to other chemical products (principal)
CPT/HCPCS: 99282; 99283

== ENCOUNTER 2022-05-24 08:59 | Outpatient (REF) | payer MEDICARE, MEDICAID, SELFPAY ==
[2022-05-24 10:33] LABS: Estimated Average Glucose 146 mg/dL; Hemoglobin A1c % 6.7 %
[2022-05-24 10:53] LABS: Microalbum/Creatinine Ratio Ur 17.8 ug/mg cr
[2022-05-24 10:59] LABS: Alanine Aminotransferase 30 U/L (0-31); Albumin Level 4.4 g/dL (3.5-5.0); Alkaline Phosphatase 72 U/L (39-117); Anion Gap 15 (12-20); Aspartate Amino Transferase 34 U/L (5-31); Bilirubin Total 0.4 mg/dL (0.0-1.0); Blood Urea Nitrogen 16 mg/dL (9-16); Calcium 9.6 mg/dL (8.4-10.2); Carbon Dioxide 26 mmol/L (22-29); Chloride 106 mmol/L (96-108); Estimated Glomerular Filt Rate > 60; Glucose Random 115 mg/dL (60-115); Potassium 4.7 mmol/L (3.3-5.1); Sodium 142 mmol/L (135-145); Total Protein 7.1 g/dL (6.5-8.0)
== END 2022-05-24 09:00 | disposition home or self-care (01) ==
LOC: HO.LAB 08:59
PROVIDERS: PCP Internal Medicine; Visit Provider Internal Medicine
DX: E11.9 Type 2 diabetes mellitus without complications (principal); E78.00 Pure hypercholesterolemia, unspecified; I10 Essential (primary) hypertension
CPT/HCPCS: 36415; 80053; 82043; 83036

== ENCOUNTER 2022-08-19 10:04 | Outpatient (REF) | payer MEDICARE, MEDICAID, SELFPAY ==
[2022-08-19 11:13] LABS: Estimated Average Glucose 146 mg/dL; Hemoglobin A1c % 6.7 %
[2022-08-19 11:37] LABS: Alanine Aminotransferase 27 U/L (0-31); Albumin Level 4.6 g/dL (3.5-5.0); Alkaline Phosphatase 84 U/L (39-117); Anion Gap 15 (12-20); Aspartate Amino Transferase 30 U/L (5-31); Bilirubin Total 0.7 mg/dL (0.0-1.0); Blood Urea Nitrogen 18 mg/dL (9-16); Carbon Dioxide 25 mmol/L (22-29); Chloride 106 mmol/L (96-108); Estimated Glomerular Filt Rate > 60; Glucose Random 129 mg/dL (60-115); Potassium 4.4 mmol/L (3.3-5.1); Sodium 142 mmol/L (135-145); Total Protein 7.5 g/dL (6.5-8.0)
== END 2022-08-19 10:05 | disposition home or self-care (01) ==
LOC: HO.LAB 10:04
PROVIDERS: Visit Provider Internal Medicine
DX: E11.9 Type 2 diabetes mellitus without complications (principal); E78.00 Pure hypercholesterolemia, unspecified; I10 Essential (primary) hypertension
CPT/HCPCS: 36415; 80053; 83036

== ENCOUNTER 2022-12-15 09:52 | Outpatient (REF) | payer MEDICARE, MEDICAID, SELFPAY ==
[2022-12-15 10:46] LABS: Estimated Average Glucose 137 mg/dL; Hemoglobin A1C 175.7508 umol/L; Hemoglobin A1c % 6.4 %
[2022-12-15 11:04] LABS: Alanine Aminotransferase 38 U/L (0-31); Albumin Level 4.5 g/dL (3.5-5.0); Alkaline Phosphatase 83 U/L (39-117); Anion Gap 15 (12-20); Aspartate Amino Transferase 40 U/L (5-31); Blood Urea Nitrogen 16 mg/dL (9-16); Calcium 9.9 mg/dL (8.4-10.2); Carbon Dioxide 25 mmol/L (22-29); Chloride 106 mmol/L (96-108); Estimated Glomerular Filt Rate > 60; Glucose Random 131 mg/dL (60-115); Potassium 4.2 mmol/L (3.3-5.1); Sodium 142 mmol/L (135-145); Total Protein 7.2 g/dL (6.5-8.0)
== END 2022-12-15 09:53 | disposition home or self-care (01) ==
LOC: HO.10HDL 09:52
PROVIDERS: Visit Provider Internal Medicine
DX: E11.9 Type 2 diabetes mellitus without complications (principal); E78.00 Pure hypercholesterolemia, unspecified; I10 Essential (primary) hypertension
CPT/HCPCS: 36415; 80053; 83036

== ENCOUNTER → 2022-12-19 14:42 | Outpatient (BNVA) | payer MEDICARE, MEDICAID, SELFPAY | PROVIDERS: PCP Internal Medicine; Referring Provider Internal Medicine; Visit Provider Nurse Practitioner Family | DX: I42.9 Cardiomyopathy, unspecified (principal); R06.02 Shortness of breath; I10 Essential (primary) hypertension | CPT/HCPCS: 99212 ==

== ENCOUNTER → 2023-01-26 13:25 | Outpatient (REF) | payer MEDICARE, MEDICAID, SELFPAY ==
--- NOTE | 2023-01-26 13:29 | CA_ITS ---
Transthoracic Echocardiogram Patient (Last, First, Middle): Kristan Morel, Gender: Female Date of : 1945 Age: 77 Procedure Date: 01/26/2023 Procedure Type: Transthoracic Echocardiogram Location: OP Height: 157.48 cm Weight: 63.05 kg BSA: 1.64 m2 Heart Rate: bpm BP: 138 / 70 mmHg Fur Trimming Machine Operator: TO Referring MD: Simin Ferreira ART CONSERVATORJaxon Symptoms: I42.9 - Cardiomyopathy, unspecified Study Quality: Fair/No IV Access Conclusions: - 1. [id number] LV systolic dysfunction with LVEF of 40-45% 2. Mildly dilated left atrium 3. Mild mitral regurgitation 4. Normal RV systolic pressure 5. No gross pericardial effusion Findings Left Ventricle Normal left ventricular cavity size. There is normal left ventricular wall thickness. The left ventricular systolic function is mild to moderately decreased. The visually estimated ejection fraction is between 40-45%. Spectral Doppler is indicative of an impaired relaxation filling pattern. E/E prime ratio is between 8 and 15 consistent with indeterminate filling pressures. Right Ventricle Normal right ventricular cavity size and systolic function. Atria The left atrium is mildly dilated. Interatrial shunt cannot be excluded. The right atrium is normal in size. Aortic Valve Normal aortic valve structure and function. There is no aortic valve stenosis. There is no aortic valve regurgitation. Mitral Valve There is mild anterior and posterior mitral leaflet thickening. There is mild mitral valve regurgitation. There is no mitral valve stenosis. Pulmonic Valve The pulmonic valve was not well visualized. Tricuspid Valve Likely normal tricuspid valve structure and function. There is trace tricuspid valve regurgitation. The right ventricular systolic pressure is normal. The right ventricular systolic pressure is 26 mmHg. Normal right atrial pressure. There is no evidence of pulmonary hypertension. Great Vessels All visible segments of the aorta are normal in size. The pulmonary artery was not well visualized. Venous The inferior vena cava is normal in size and collapses greater than 50% with inspiration. Pericardium/Pleural There is no evidence of pericardial effusion. Prior Study Comparison No significant change compared to prior study dated: 09/09/2021. Measurements 2D Linear Measurements IVSd: 1.40 0.6-0.9/0.6-1.0 cm LVIDd: 5.32 3.9-5.3/4.2-5.9 cm LVIDd Index: 3.24 2.4-3.2/2.2-3.1 cm/m2 LVIDs: 4.25 2.0-3.6 cm LVPWd: 0.94 0.7-1.1 cm LA Diam: 3.90 2.7-3.8/3.0-4.0 cm LAIDs Index: 2.38 1.5-2.3 cm/m2 LV Mass: 310.66 67-162/88-224 g LV Mass Index: 189.43 43-95/49-115 g/m2 LVOT Diam: 2.10 3.0+(-)1.3 cm 2D Systolic Function EF 4C: 41.40 >55% EF 2C: 39.70 >55% EF BiP: 40.00 >55% Mitral Valve MV Pk E: 0.63 MV PK A: 0.96 MV Decel Time: 158.00 E/A: 0.70 E'Lateral: 3.92 E/E' Lat: 16.10 PHT: 46.00 MVA PHT: 4.78 Decel [place]: 3.98 Aortic Valve AoV Pk Vincent: 1.68 AoV Mn Vincent: 1.13 AoV VTI: 0.35 AoV Pk Grad: 11.00 Aov Mn Grad: 6.00 MAHESH Cont.VTI: 1.67 LVOT LVOT Pk Vincent: 0.86 LVOT Mn Vincent: 0.56 LVOT VTI: 0.17 LVOT Pk Grad: 3.00 LVOT Mn Grad: 1.00 LVOT Diam: 2.10 LVOT Area: 3.46 Diastolic Function MV Pk E: 0.63 MV Pk A: 0.96 E/A: 0.70 E' Laterial: 3.92 E/E' Lat: 16.10 Right Ventricle TAPSE (mm): 21.30 TVS' Vincent: 11.00 Tricuspid Valve TR Pk Vincent: 2.42 TR Pk Grad: 23.00 RA Press: 3.00 RVSP: 26.00 Great Vessels Aorta Sinus of Valsalva: 2.86 2.0-3.5 cm Ao Asc: 3.20 2.1-3.4 cm Updated in Other Vendor System with Status of Final Lamonte Delgado MD electronically signed on 01/27/2023 1:13:46 PM with status of Final
== END ==
LOC: HO.CARD 13:25
PROVIDERS: PCP Internal Medicine; Visit Provider Nurse Practitioner Family
DX: I42.9 Cardiomyopathy, unspecified (principal); R06.02 Shortness of breath
CPT/HCPCS: 93306

== ENCOUNTER 2023-05-18 13:54 | Outpatient (REF) | payer MEDICARE, MEDICAID, SELFPAY | END 2023-05-18 13:55 | disposition home or self-care (01) | LOC: HO.MAMMO 13:54 | PROVIDERS: PCP Internal Medicine; Visit Provider Internal Medicine | DX: Z12.31 Encounter for screening mammogram for malignant neoplasm of breast (principal) | CPT/HCPCS: 77063; 77067 ==

== ENCOUNTER → 2023-05-18 14:30 | Outpatient (BNV) | payer MEDICARE, MEDICAID, SELFPAY | PROVIDERS: PCP Internal Medicine; Visit Provider Radiology Diagnostic Radiology | DX: Z12.31 Encounter for screening mammogram for malignant neoplasm of breast (principal) | CPT/HCPCS: 77063; 77067 ==

== ENCOUNTER 2023-05-25 08:34 | Outpatient (REF) | payer MEDICARE, MEDICAID, SELFPAY ==
[2023-05-25 12:06] LABS: Estimated Average Glucose 126 mg/dL
[2023-05-25 12:25] LABS: Alanine Aminotransferase 28 U/L (0-31); Albumin Level 4.5 g/dL (3.5-5.0); Alkaline Phosphatase 81 U/L (39-117); Anion Gap 14 (12-20); Aspartate Amino Transferase 34 U/L (5-31); Bilirubin Total 0.7 mg/dL (0.0-1.0); Blood Urea Nitrogen 16 mg/dL (9-16); Calcium 9.8 mg/dL (8.4-10.2); Carbon Dioxide 24 mmol/L (22-29); Chloride 108 mmol/L (96-108); Estimated Glomerular Filt Rate > 60; Glucose Random 117 mg/dL (60-115); Potassium 4.1 mmol/L (3.3-5.1); Sodium 142 mmol/L (135-145); Total Protein 7.6 g/dL (6.5-8.0)
== END 2023-05-25 08:35 | disposition home or self-care (01) ==
LOC: HO.10HDL 08:34
PROVIDERS: Visit Provider Internal Medicine
DX: E11.9 Type 2 diabetes mellitus without complications (principal); I10 Essential (primary) hypertension; M54.9 Dorsalgia, unspecified; R74.01 Elevation of levels of liver transaminase levels; E78.00 Pure hypercholesterolemia, unspecified
CPT/HCPCS: 36415; 80053; 83036

== ENCOUNTER 2023-07-16 14:43 | Outpatient (AMB) | payer MEDICARE, MEDICAID, SELFPAY ==
--- NOTE | 2023-07-16 14:49 | A.OFFVIS_ITS ---
Intake Vital Signs 07/16/23 14:50 Height 5 ft 4 in Weight 140 lb 3.424 oz BMI 24.1 BP 130/62 Blood Pressure Location Lt brachial Position Sitting Pulse 84 Intake Visit Reasons: f/u Fruit Cutter Required: Yes Fruit Cutter Language: Farm Implement Engine Mechanic Name: eri coronado [id number] Information Interpreted: non-clinical only Allergies codeine Allergy (Unknown, Verified 07/16/23 14:54) UNKNOWN Sulfa (Sulfonamide Antibiotics) Allergy (Unknown, Verified 07/16/23 14:54) RASH FAREED Inhibitors Adverse Reaction (Unknown, Verified 07/16/23 14:54) UNKNOWN Medication List - Last Reconciled 07/16/23 by Simin Ferreira, BURAK-C amlodipine 10 mg PO DAILY aspirin 81 mg PO .daily losartan-hydrochlorothiazide 100-25 mg 1 tab PO DAILY meloxicam 7.5 mg PO DAILY metoprolol succinate ER 100 mg PO DAILY nitroglycerin 0.4 mg sublingual Q5M PRN rosuvastatin 40 mg PO BEDTIME HPI f/u HPI Details Kristan is a 77-year-old female with past medical history of hypertension, cardiomyopathy who presents for follow-up. Today she reports that she has been getting a pressure in her chest with associated sweating, that usually occurs during physical activity. Her episodes can last several minutes and resolve on their own. She states this is a newer symptom for her. No concerning shortness of breath, palpitations, presyncope, syncope, PND, orthopnea or edema. Does light activities around the house. Takes meds as directed. Daughter is present. Certified movement education specialist used. [facility] Medical History Hypertension Cardiomyopathy Surgical History History of eye surgery History of section Family History Father Cardiovascular disease Mother No problems noted. Social History Alcohol intake: never Patient Tobacco Use Status: Never used Tobacco Current occupational status: disabled Current occupation: rt hand Review of Systems Const All systems reviewed & are unremarkable except as noted in HPI and below ENT Denies dizziness Card Reports chest pain (with sweating), Denies chest pain at rest, Reports chest pain with activity, Denies rapid heart rate, Denies pedal edema, Denies edema, Denies leg edema, Denies lightheadedness, Denies palpitations, Denies dyspnea, Denies dyspnea on exertion and Denies orthopnea Resp Denies cough, Denies dyspnea and Denies dyspnea on exertion GI Denies hematochezia and Denies change in stool character Musc Denies abnormal gait, Denies limited range of motion, Denies muscle cramps, Denies muscle weakness, Denies numbness, Denies radiating pain into limb, Denies stiffness and Denies tingling Neuro Denies abnormal gait, Denies dizziness, Denies numbness and Denies tingling Endo Denies palpitations Physical Exam Vital Signs: Last Vital Signs Pulse 84 07/16/23 14:50 BP 130/62 07/16/23 14:50 BMI result Body Mass Index 24.1 Const General: cooperative, healthy appearing, comfortable and no acute distress Orientation/consciousness: patient oriented x3 Neck Neck: Yes normal visual inspection Resp Effort & Inspection: normal respiratory effort Auscultation: clear to auscultation bilaterally, no crackles, no rales, no rhonchi and no wheezes Cardio Jugular venous distension: no JVD Rate: regular rate Rhythm: regular rhythm Heart sounds: S1 normal heart sound present, S2 normal heart sound present, no murmurs and no rubs Neuro General: patient oriented x3 Extrem General: Yes normal to inspection and No no pedal edema Psych Appearance: grossly normal Mental Status: mental status grossly normal Speech and movement: Normal speech and movement present Office Procedures EKG Details: Today, read by me, normal sinus rhythm, incomplete left bundle branch block, LVH, repolarization abnormality, rate 84, QTC 479 millisecond, falsely prolonged due to white QRS [id number], Complete Assessment & Plan Assessment & Plan (1) Cardiomyopathy: Comment: Nonischemic cardiomyopathy, NYHA class 1-2. Code(s): I42.9 - Cardiomyopathy, unspecified Plan: History of nonischemic cardiomyopathy with last prior echo 09/09/2021 showing EF 40-45%. A cardiac catheterization had been done on 04/29/2020 showing no significant coronary artery disease. She has been on losartan and metoprolol XL for neurohormonal modulation. She has not had any recent heart failure admissions. A follow-up echo was done on 01/26/2023 showing EF 40-45%, mildly dilated left atrium, mild MR, overall no change from last. Today she reports she has been experience some chest tightness with sweating during activity. This symptom does sound concerning however cardiac catheterization as above. EKG done today showing normal sinus rhythm, incomplete left bundle branch block, LVH with repolarization abnormality, overall no change from last. Since her symptom is new and sounds like it could be angina will check a pharmacological nuclear stress test to evaluate for ischemia. On examination she does not appear fluid overloaded. Will have her continue on current medications without change. She is on aspirin, amlodipine, rosuvastatin, losartan and metoprolol XL. Continue light activity as tolerated. Emergency care if ever needed for symptoms. Plan to call her with stress test results. If normal then cardiology follow-up will be in 6 months. If abnormal then further testing and follow-up to be determined. (2) Hypertension: Comment: Stable Code(s): I10 - Essential (primary) hypertension Plan: Well controlled at present time. Continue current med management (3) Chest discomfort: Code(s): R07.89 - Other chest pain Plan: New chest discomfort as above Plan Time spent on chart review, documentation, interview, assessment Orders: Orders NM cardiolite stress test Today R07.89 - Other chest pain CA lexiscan stress w mariana Today I42.9 - Cardiomyopathy, unspecified, R07.89 - Other chest pain Coding Level of Care Code Est Pt Level 4 (88259) Diagnoses Cardiomyopathy I42.9 Hypertension I10 Chest discomfort R07.89 CPT Codes EKG - CPT: 67804-[id number], Complete ([id number]) Time Spent (min) 28
[2023-07-16 14:50] VITALS: BP 130/62; PULSE 84; BMI 24.1
== END 2023-07-16 15:35 | disposition home or self-care (01) ==
PROVIDERS: PCP Internal Medicine; Visit Provider Nurse Practitioner Family
DX: I42.9 Cardiomyopathy, unspecified (principal); I10 Essential (primary) hypertension; R07.89 Other chest pain
CPT/HCPCS: 93010; 99214

== ENCOUNTER → 2023-07-16 14:43 | Outpatient (BNVA) | payer MEDICARE, MEDICAID, SELFPAY | PROVIDERS: PCP Internal Medicine; Visit Provider Nurse Practitioner Family | DX: I42.9 Cardiomyopathy, unspecified (principal); I10 Essential (primary) hypertension; R07.89 Other chest pain | CPT/HCPCS: 93005; 99212 ==

== ENCOUNTER 2023-08-29 08:46 | Outpatient (REF) | payer MEDICARE, MEDICAID, SELFPAY ==
[2023-08-29 09:12] LABS: MANUAL DIFF FLAG NO
[2023-08-29 09:33] LABS: Basophils Absolute Auto 0.1 X10*3/uL (0.0-0.2); Basophils Percent Auto 0.7 % (0-2); Eosinophils Absolute Auto 0.2 X10*3/uL (0.0-0.4); Eosinophils Percent Auto 2.3 % (0-4); Hematocrit 42.4 % (37.0-47.0); Hemoglobin 14.1 g/dl (12.0-16.0); Imm Gran Abs Auto 0.03 X10*3/uL (0.00-0.03); Imm Gran Pct Auto 0.4 % (0.0-0.4); Lymphocytes Absolute Auto 2.1 X10*3/uL (1.2-4.9); Lymphocytes Percent Auto 24.6 % (20-40); Mean Corpuscular HGB Conc 33.3 g/dl (31.0-35.0); Mean Corpuscular Hemoglobin 30.9 pg (27.0-33.0); Mean Platelet Volume 9.8 fL (9.4-12.3); Monocytes Absolute Auto 0.6 X10*3/uL (0.1-1.2); Monocytes Percent Auto 6.9 % (2-11); Neutrophils Absolute Auto 5.5 x10*3/uL (2.0-8.3); Neutrophils Percent Auto 65.1 % (45-73); Platelet Count 302 X10*3/uL (160-400); Red Blood Count 4.56 X10*6/uL (4.20-5.50); Red Cell Distribution Width 13.8 % (11.0-16.0); White Blood Count 8.4 X10*3/uL (4.8-10.8)
[2023-08-29 09:39] LABS: Estimated Average Glucose 126 mg/dL; Hemoglobin A1C 148.4994 umol/L
[2023-08-29 10:09] LABS: Alanine Aminotransferase 25 U/L (0-31); Albumin Level 4.5 g/dL (3.5-5.0); Alkaline Phosphatase 73 U/L (39-117); Anion Gap 12 (12-20); Aspartate Amino Transferase 30 U/L (5-31); Bilirubin Total 0.8 mg/dL (0.0-1.0); Blood Urea Nitrogen 13 mg/dL (9-16); Calcium 9.8 mg/dL (8.4-10.2); Carbon Dioxide 27 mmol/L (22-29); Chloride 106 mmol/L (96-108); Cholesterol 164 mg/dL (<200); Estimated Glomerular Filt Rate > 60; Glucose Random 114 mg/dL (60-115); HDL Cholesterol 49 mg/dL (>40); LDL Cholesterol Calculated 101 mg/dL (<100); Sodium 141 mmol/L (135-145); Total Protein 7.5 g/dL (6.5-8.0); Triglycerides 70 mg/dL (<150)
[2023-08-29 10:21] LABS: Creatinine Urine 145.91 mg/dL; Microalbum/Creatinine Ratio Ur 30.8 ug/mg cr (<30)
[2023-08-29 10:27] LABS: Vitamin B12 435 pg/mL (200-900)
[2023-08-29 10:30] LABS: Thyroid Stimulating Hormone 1.91 uIU/mL (0.32-4.0); Vitamin D 25-OH Total 27.1 ng/mL (>30)
== END 2023-08-29 08:47 | disposition home or self-care (01) ==
LOC: HO.LAB 08:46
PROVIDERS: PCP Internal Medicine; Visit Provider Internal Medicine
DX: E11.9 Type 2 diabetes mellitus without complications (principal); E78.00 Pure hypercholesterolemia, unspecified; I10 Essential (primary) hypertension; R74.01 Elevation of levels of liver transaminase levels
CPT/HCPCS: 36415; 80053; 80061; 82043; 82306; 82570; 82607; 83036; 84443; 85025

== ENCOUNTER 2023-10-26 08:56 | Outpatient (REF) | payer MEDICARE, MEDICAID, SELFPAY ==
[2023-10-26 09:42] LABS: Estimated Average Glucose 117 mg/dL; Hemoglobin A1c % 5.7 % (<6.0)
[2023-10-26 10:07] LABS: Alanine Aminotransferase 22 U/L (0-31); Albumin Level 4.6 g/dL (3.5-5.0); Alkaline Phosphatase 90 U/L (39-117); Anion Gap 14 (12-20); Aspartate Amino Transferase 27 U/L (5-31); Bilirubin Total 0.6 mg/dL (0.0-1.0); Blood Urea Nitrogen 13 mg/dL (9-16); Calcium 10.4 mg/dL (8.4-10.2); Carbon Dioxide 31 mmol/L (22-29); Chloride 104 mmol/L (96-108); Cholesterol 225 mg/dL (<200); Estimated Glomerular Filt Rate 59; Glucose Random 115 mg/dL (60-115); HDL Cholesterol 42 mg/dL (>40); LDL Cholesterol Calculated 153 mg/dL (<100); Potassium 4.1 mmol/L (3.3-5.1); Sodium 145 mmol/L (135-145); Total Protein 7.9 g/dL (6.5-8.0); Triglycerides 153 mg/dL (<150)
== END 2023-10-26 08:57 | disposition home or self-care (01) ==
LOC: HO.LAB 08:56
PROVIDERS: PCP Internal Medicine; Visit Provider Internal Medicine
DX: E11.9 Type 2 diabetes mellitus without complications (principal); E78.00 Pure hypercholesterolemia, unspecified; I10 Essential (primary) hypertension; R80.8 Other proteinuria
CPT/HCPCS: 36415; 80053; 80061; 83036

== ENCOUNTER 2024-01-22 14:59 | Outpatient (AMB) | payer MEDICARE, MEDICAID, SELFPAY ==
[2024-01-22 15:32] VITALS: BP 144/62; PULSE 85; BMI 21.3
--- NOTE | 2024-01-22 15:32 | MHC.OFFVIS ---
Vital Signs 01/22/24 15:32 Height 5 ft 4 in Weight 123 lb 14.397 oz BMI 21.3 BP 144/62 H Blood Pressure Location Rt brachial Pulse 85 Pulse Source Pulse Oximeter Intake Visit Reasons: 6 mos followup Trailer Steerer Required: Yes Trailer Steerer Name: eri saucedo [id number] Allergies codeine Allergy (Unknown, Verified 01/22/24 15:33) UNKNOWN Sulfa (Sulfonamide Antibiotics) Allergy (Unknown, Verified 01/22/24 15:33) RASH FAREED Inhibitors Adverse Reaction (Unknown, Verified 01/22/24 15:33) UNKNOWN Medication List - Last Reconciled 01/22/24 by Simin Ferreira NP-C amlodipine 10 mg PO DAILY aspirin 81 mg PO .daily ezetimibe 10 mg PO DAILY losartan-hydrochlorothiazide 100-25 mg 1 tab PO DAILY meloxicam 7.5 mg PO DAILY metoprolol succinate ER 100 mg PO DAILY nitroglycerin 0.4 mg sublingual Q5M PRN rosuvastatin 40 mg PO BEDTIME HPI HPI 6 mos followup: Details: Kristan is a 78-year-old female with past medical history of hypertension, cardiomyopathy who presents for follow-up. Today she reports that she has been doing well since her last visit in July. She denies any chest discomfort at rest with activity. No concerning shortness of breath. No PND, orthopnea or edema. No lightheadedness, presyncope, syncope, falls. Sleeps with 2 pillows. Does light activities around the house. Taking meds as directed. Son is present. Certified seismic interpreter used [facility] Medical History Hypertension Cardiomyopathy Surgical History History of eye surgery History of section Family History Father Cardiovascular disease Mother No problems noted. Social History Alcohol intake: never Patient Tobacco Use Status: Never used Tobacco Current occupational status: disabled Current occupation: rt hand Review of Systems Const All systems reviewed & are unremarkable except as noted in HPI and below ENT Denies dizziness Card Denies chest pain, Denies chest pain at rest, Denies chest pain with activity, Denies rapid heart rate, Denies pedal edema, Denies edema, Denies leg edema, Denies lightheadedness, Denies palpitations, Denies dyspnea, Denies dyspnea on exertion and Denies orthopnea Resp Denies cough, Denies dyspnea and Denies dyspnea on exertion GI Denies hematochezia and Denies change in stool character Musc Denies abnormal gait, Denies limited range of motion, Denies muscle cramps, Denies muscle weakness, Denies numbness, Denies radiating pain into limb, Denies stiffness and Denies tingling Neuro Denies abnormal gait, Denies dizziness, Denies numbness and Denies tingling Endo Denies palpitations Physical Exam Vital Signs: Last Vital Signs Pulse 85 01/22/24 15:32 BP 144/62 H 01/22/24 15:32 BMI result Body Mass Index 21.3 Const General: cooperative, healthy appearing, comfortable and no acute distress Orientation/consciousness: patient oriented x3 Neck Neck: Yes normal visual inspection and Yes no JVD Resp Effort & Inspection: normal respiratory effort Auscultation: clear to auscultation bilaterally, no rales, no rhonchi and no wheezes Cardio Jugular venous distension: no JVD Rate: regular rate Rhythm: regular rhythm Heart sounds: S1 normal heart sound present, S2 normal heart sound present, no murmurs and no rubs Neuro General: patient oriented x3 Extrem General: Yes normal to inspection, No no pedal edema and No calf tenderness Psych Appearance: grossly normal Mental Status: mental status grossly normal Speech and movement: Normal speech and movement present Assessment & Plan Assessment & Plan (1) Cardiomyopathy: Comment: Nonischemic cardiomyopathy, NYHA class 1-2. Code(s): I42.9 - Cardiomyopathy, unspecified Category: Medical Plan: History of nonischemic cardiomyopathy with last prior echo 09/09/2021 showing EF 40-45%. A cardiac catheterization had been done on 04/29/2020 showing no significant coronary artery disease. She has been on losartan and metoprolol XL for neurohormonal modulation. She has not had any recent heart failure admissions. A follow-up echo was done on 01/26/2023 showing EF 40-45%, mildly dilated left atrium, mild MR, overall no change from last. On last visit she had reported some chest discomfort and a nuclear stress test was ordered however never completed by patient. Today she reports she has been feeling well with no concerning symptoms. On examination she does not appear fluid overloaded. Will have her continue on current medications without change. She is on aspirin, amlodipine, rosuvastatin, losartan and metoprolol XL. Continue light activity as tolerated. Emergency care if ever needed for symptoms.Cardiology follow-up will be in 6 months. If abnormal then further testing and follow-up to be determined. (2) Hypertension: Comment: Stable Code(s): I10 - Essential (primary) hypertension Category: Medical Plan: Mild elevation today. She reports being anxious at doctor's visit. Reviewed low-salt diet. Continue current med management Plan Time spent on chart review, documentation, interview, assessment Coding Level of Care Code Est Pt Level 3 (02950) Diagnoses Cardiomyopathy I42.9 Hypertension I10 Time Spent (min) 24
== END 2024-01-22 16:03 | disposition home or self-care (01) ==
PROVIDERS: PCP Internal Medicine; Visit Provider Nurse Practitioner Family
DX: I42.9 Cardiomyopathy, unspecified (principal); I10 Essential (primary) hypertension
CPT/HCPCS: 99213

== ENCOUNTER → 2024-01-22 14:59 | Outpatient (BNVA) | payer MEDICARE, MEDICAID, SELFPAY | PROVIDERS: PCP Internal Medicine; Visit Provider Nurse Practitioner Family | DX: I42.9 Cardiomyopathy, unspecified (principal); I10 Essential (primary) hypertension | CPT/HCPCS: 99212 ==

== ENCOUNTER 2024-01-24 07:40 | Outpatient (REF) | payer MEDICARE, MEDICAID, SELFPAY ==
[2024-01-24 09:01] LABS: Parathyroid Hormone Intact 45.9 pg/mL (8.7-77.1)
[2024-01-24 09:02] LABS: Cholesterol 101 mg/dL (<200); HDL Cholesterol 45 mg/dL (>40); LDL Cholesterol Calculated 47 mg/dL (<100); Phosphorus 3.4 mg/dL (2.7-4.5); Triglycerides 48 mg/dL (<150)
== END 2024-01-24 07:41 | disposition home or self-care (01) ==
LOC: HO.LAB 07:40
PROVIDERS: PCP Internal Medicine; Visit Provider Internal Medicine
DX: E11.9 Type 2 diabetes mellitus without complications (principal); E78.00 Pure hypercholesterolemia, unspecified; I10 Essential (primary) hypertension; K59.00 Constipation, unspecified; R14.0 Abdominal distension (gaseous)
CPT/HCPCS: 36415; 80061; 83970; 84100

== ENCOUNTER 2024-05-23 13:43 | Outpatient (REF) | payer MEDICARE, MEDICAID, SELFPAY ==
--- NOTE | ~2024-05-23 | MM_ITS ---
EXAMINATION: MM SCREENING DIGITAL BREAST TOMOSYNTHESIS, BILATERAL CLINICAL INFORMATION: Screening. Asymptomatic. COMPARISON: Mammography: Comparison is made with available priors TECHNIQUE: Digital breast mammography with tomosynthesis is performed in both the craniocaudal and mediolateral oblique views along with computer-aided detection (CAD). FINDINGS: There are scattered areas of fibroglandular density (ACR BI-RADS breast composition Category b). There are no significant masses, abnormal calcifications, or other abnormalities. MM/MM tomosynthesis screening BI IMPRESSION: No mammographic evidence of malignancy. ASSESSMENT: BI-RADS BI-RADS 1 - Negative RECOMMENDATION: Routine annual mammography screening. 1 year F/U This examination should not preclude the clinical evaluation of a suspicious palpable abnormality. This patient's information was entered into a reminder system with a target due date for their next mammogram. Electronically signed by: Drea Carolina DO 06/05/2024 09:42 PM EDT
== END 2024-05-23 13:44 | disposition home or self-care (01) ==
LOC: HO.MAMMO 13:43
PROVIDERS: PCP Internal Medicine; Visit Provider Internal Medicine
DX: Z12.31 Encounter for screening mammogram for malignant neoplasm of breast (principal)
CPT/HCPCS: 77063; 77067

== ENCOUNTER → 2024-05-23 14:15 | Outpatient (BNV) | payer MEDICARE, MEDICAID, SELFPAY | PROVIDERS: PCP Internal Medicine; Visit Provider Internal Medicine | DX: Z12.31 Encounter for screening mammogram for malignant neoplasm of breast (principal) | CPT/HCPCS: 77063; 77067 ==

== ENCOUNTER 2024-05-28 08:03 | Outpatient (REF) | payer MEDICARE, MEDICAID, SELFPAY ==
[2024-05-28 08:43] LABS: Basophils Absolute Auto 0.1 X10*3/uL (0.0-0.2); Basophils Percent Auto 0.7 % (0-2); Eosinophils Absolute Auto 0.2 X10*3/uL (0.0-0.4); Eosinophils Percent Auto 1.8 % (0-4); Hematocrit 44.4 % (37.0-47.0); Hemoglobin 14.8 g/dl (12.0-16.0); Imm Gran Abs Auto 0.03 X10*3/uL (0.00-0.03); Imm Gran Pct Auto 0.3 % (0.0-0.4); Lymphocytes Absolute Auto 2.4 X10*3/uL (1.2-4.9); Lymphocytes Percent Auto 27.1 % (20-40); MANUAL DIFF FLAG NO; Mean Corpuscular HGB Conc 33.3 g/dl (31.0-35.0); Mean Corpuscular Hemoglobin 30.4 pg (27.0-33.0); Mean Corpuscular Volume 91.2 fL (80.0-98.0); Mean Platelet Volume 9.8 fL (9.4-12.3); Monocytes Absolute Auto 0.6 X10*3/uL (0.1-1.2); Monocytes Percent Auto 7.3 % (2-11); Neutrophils Absolute Auto 5.4 x10*3/uL (2.0-8.3); Neutrophils Percent Auto 62.8 % (45-73); Platelet Count 314 X10*3/uL (160-400); Red Blood Count 4.87 X10*6/uL (4.20-5.50); Red Cell Distribution Width 13.2 % (11.0-16.0); White Blood Count 8.7 X10*3/uL (4.8-10.8)
[2024-05-28 09:27] LABS: Creatinine Urine 262.86 mg/dL; Microalbum/Creatinine Ratio Ur 38.8 ug/mg cr (<30)
[2024-05-28 09:50] LABS: Alanine Aminotransferase 15 U/L (0-31); Albumin Level 4.6 g/dL (3.5-5.0); Alkaline Phosphatase 86 U/L (39-117); Anion Gap 12 (12-20); Aspartate Amino Transferase 22 U/L (5-31); Bilirubin Total 0.6 mg/dL (0.0-1.0); Blood Urea Nitrogen 12 mg/dL (9-16); Calcium 10.2 mg/dL (8.4-10.2); Carbon Dioxide 29 mmol/L (22-29); Chloride 107 mmol/L (96-108); Estimated Glomerular Filt Rate > 60; Glucose Random 106 mg/dL (60-115); Potassium 3.9 mmol/L (3.3-5.1); Sodium 144 mmol/L (135-145); Total Protein 7.7 g/dL (6.5-8.0)
[2024-05-28 10:05] LABS: Thyroid Stimulating Hormone 2.05 uIU/mL (0.32-4.0); Vitamin D 25-OH Total 34.7 ng/mL (>30)
== END 2024-05-28 08:04 | disposition home or self-care (01) ==
LOC: HO.LAB 08:03
PROVIDERS: PCP Internal Medicine; Visit Provider Internal Medicine
DX: E11.9 Type 2 diabetes mellitus without complications (principal); E78.00 Pure hypercholesterolemia, unspecified; E83.52 Hypercalcemia; I10 Essential (primary) hypertension; R63.4 Abnormal weight loss
CPT/HCPCS: 36415; 80053; 82043; 82306; 82570; 84443; 85025

== ENCOUNTER 2024-09-01 14:58 | Outpatient (AMB) | payer MEDICARE, MEDICAID, SELFPAY ==
[2024-09-01 15:02] VITALS: BP 148/62; PULSE 81; BMI 20.1
--- NOTE | 2024-09-01 15:02 | A.OFFVIS_ITS ---
Vital Signs 09/01/24 15:02 Height 5 ft 4 in Weight 117 lb 4.575 oz BMI 20.1 BP 148/62 H Blood Pressure Location Lt brachial Position Sitting Pulse 81 Pulse Source Monitor Intake Visit Reasons: r/s 07/29/24 6 mos followup Weigher Production Required: No Clinical Staff Pharmacist: Clinical Staff Pharmacist Present Allergies codeine Allergy (Unknown, Verified 09/01/24 15:06) UNKNOWN Sulfa (Sulfonamide Antibiotics) Allergy (Unknown, Verified 09/01/24 15:06) RASH FAREED Inhibitors Adverse Reaction (Unknown, Verified 09/01/24 15:06) UNKNOWN Medication List - Last Reconciled 09/01/24 by Simin Ferreira, DYED RAW STOCK BLOWER FEEDER-C amlodipine 10 mg PO DAILY aspirin 81 mg PO .daily ezetimibe 10 mg PO DAILY losartan-hydrochlorothiazide 100-25 mg 1 tab PO DAILY meloxicam 7.5 mg PO DAILY metoprolol succinate ER 100 mg PO DAILY nitroglycerin 0.4 mg sublingual Q5M PRN rosuvastatin 40 mg PO BEDTIME HPI HPI r/s 07/29/24 6 mos followup: Details: Kristan is a 78-year-old female with past medical history of hypertension, nonischemic cardiomyopathy who presents for follow-up. Today she reports that she has been doing well since her last visit in January. She denies any chest discomfort at rest with activity. No concerning shortness of breath. No PND, orthopnea or edema. No lightheadedness, presyncope, syncope, falls. Sleeps with 2 pillows. Does light activities around the house and helps take care of her elderly . Taking meds as directed. Son is present. He is assisting with Hungarian interpretation at their request. [facility] Medical History Hypertension Cardiomyopathy Surgical History History of eye surgery History of section Family History Father Cardiovascular disease Mother No problems noted. Social History Alcohol intake: never Patient Tobacco Use Status: Never used Tobacco Current occupational status: disabled Current occupation: rt hand Review of Systems Const All systems reviewed & are unremarkable except as noted in HPI and below ENT Denies dizziness Card Denies chest pain, Denies chest pain at rest, Denies chest pain with activity, Denies rapid heart rate, Denies pedal edema, Denies edema, Denies leg edema, Denies lightheadedness, Denies palpitations, Denies dyspnea, Denies dyspnea on exertion and Denies orthopnea Resp Denies cough, Denies dyspnea and Denies dyspnea on exertion GI Denies hematochezia and Denies change in stool character Musc Denies abnormal gait, Denies limited range of motion, Denies muscle cramps, Denies muscle weakness, Denies numbness, Denies radiating pain into limb, Denies stiffness and Denies tingling Neuro Denies abnormal gait, Denies dizziness, Denies numbness and Denies tingling Endo Denies palpitations Physical Exam Vital Signs: Last Vital Signs Pulse 81 09/01/24 15:02 BP 148/62 H 09/01/24 15:02 BMI result Body Mass Index 20.1 Const General: cooperative, healthy appearing, comfortable and no acute distress Orientation/consciousness: patient oriented x3 Neck Neck: Yes normal visual inspection Resp Effort & Inspection: normal respiratory effort Auscultation: clear to auscultation bilaterally, no rales, no rhonchi and no wheezes Cardio Jugular venous distension: no JVD Rate: regular rate Rhythm: regular rhythm Heart sounds: S1 normal heart sound present, S2 normal heart sound present, no murmurs and no rubs Neuro General: patient oriented x3 Extrem General: Yes normal to inspection, No no pedal edema and No calf tenderness Psych Appearance: grossly normal Mental Status: mental status grossly normal Speech and movement: Normal speech and movement present Office Procedures EKG Details: Today, read by me sinus rhythm with 3 PVCs, LVH with QRS widening and repolarization abnormality, rate 81, no significant change from EKG 07/16/2023 [id number], Complete Assessment & Plan Assessment & Plan (1) Cardiomyopathy: Comment: Nonischemic cardiomyopathy, NYHA class 1-2. Code(s): I42.9 - Cardiomyopathy, unspecified Category: Medical Plan: History of nonischemic cardiomyopathy with echo 09/09/2021 showing EF 40-45%. A cardiac catheterization had been done on 04/29/2020 showing no significant coronary artery disease. She has been on losartan and metoprolol XL for neurohormonal modulation. She has not had any recent heart failure admissions. A repeat echo was done on 01/26/2023 showing EF 40-45%, mildly dilated left atrium, mild MR, overall no change from last. Today she reports she has been feeling well with no concerning symptoms. On exam she does not appear fluid overloaded. Signs and symptoms of heart failure reviewed with her. Will have her continue on current medications without change. She is on aspirin, amlodipine, rosuvastatin, losartan and metoprolol XL. Labs done 05/28/2024 showed potassium 3.9, creatinine 0.81. Continue activity as tolerated. Will update echo prior to her next visit. Cardiology follow-up will be in 6 months, sooner if needed (2) Hypertension: Comment: Stable Code(s): I10 - Essential (primary) hypertension Category: Medical Plan: Initially mildly elevated at 140 8/62. Recheck done by me at the end of the visit 09/01 . She reports compliance with her medications. No med changes made. Reviewed low-salt diet. Plan Time spent on chart review, documentation, interview, assessment Orders: Orders CA echo transthoracic complete 02/10/25 I42.9 - Cardiomyopathy, unspecified Coding Level of Care Code Est Pt Level 4 (13052) Complex EM visit Add On G2211 Diagnoses Cardiomyopathy I42.9 Hypertension I10 CPT Codes EKG - CPT: 05248-[id number], Complete ([id number]) Time Spent (min) 28
== END 2024-09-01 15:30 | disposition home or self-care (01) ==
PROVIDERS: PCP Internal Medicine; Visit Provider Nurse Practitioner Family
DX: I42.9 Cardiomyopathy, unspecified (principal); I10 Essential (primary) hypertension
CPT/HCPCS: 93010; 99214; G2211

== ENCOUNTER → 2024-09-01 14:58 | Outpatient (BNVA) | payer MEDICARE, MEDICAID, SELFPAY | PROVIDERS: PCP Internal Medicine; Visit Provider Nurse Practitioner Family | DX: I42.9 Cardiomyopathy, unspecified (principal); I10 Essential (primary) hypertension; R94.31 Abnormal electrocardiogram [ECG] [EKG]; I51.7 Cardiomegaly | CPT/HCPCS: 93005; 99212 ==

== ENCOUNTER 2024-09-06 08:27 | Outpatient (REF) | payer MEDICARE, MEDICAID, SELFPAY ==
[2024-09-06 09:22] LABS: Estimated Average Glucose 117 mg/dL; Hemoglobin A1C 151.8945 umol/L; Hemoglobin A1c % 5.7 % (<6.0); Total Hemoglobin (HGBA1C) 3901.7793 umol/L
[2024-09-06 09:45] LABS: Alanine Aminotransferase 22 U/L (0-31); Albumin Level 4.7 g/dL (3.5-5.0); Alkaline Phosphatase 95 U/L (39-117); Anion Gap 14 (12-20); Aspartate Amino Transferase 30 U/L (5-31); Bilirubin Total 0.8 mg/dL (0.0-1.0); Blood Urea Nitrogen 23 mg/dL (9-16); Calcium 10.6 mg/dL (8.4-10.2); Carbon Dioxide 30 mmol/L (22-29); Chloride 102 mmol/L (96-108); Estimated Glomerular Filt Rate > 60; Glucose Random 111 mg/dL (60-115); Potassium 3.8 mmol/L (3.3-5.1); Sodium 142 mmol/L (135-145); Total Protein 8.4 g/dL (6.5-8.0)
[2024-09-06 10:07] LABS: Vitamin B12 608 pg/mL (200-900)
== END 2024-09-06 08:28 | disposition home or self-care (01) ==
LOC: HO.LAB 08:27
PROVIDERS: PCP Internal Medicine; Visit Provider Internal Medicine
DX: E11.9 Type 2 diabetes mellitus without complications (principal); E78.00 Pure hypercholesterolemia, unspecified; R05.3 Chronic cough
CPT/HCPCS: 36415; 80053; 82607; 83036

== ENCOUNTER 2024-11-15 09:49 | Outpatient (REF) | payer OTHER, SELFPAY ==
--- OUTSIDE RECORDS SUMMARY | 2024-11-15 09:52 | XMS_ITS | Clinical Summary ---
Author Organization [facility] Address [address] [place] [address] Care Team Providers Care Link Cutter Name Role Phone Unavailable Primary Care Provider Unavailabl e Source Comments PLEASE NOTE, if this patient is a minor, it may be UNLAWFUL to discuss sensitive information that is contained in these records (such as FAMILY PLANNING, MENTAL HEALTH or SUBSTANCE ABUSE) with the minor patient's parent or other person without the patient's specific authorization.[facility] Immunizations Immunization Administration Dates Next Due Moderna COVID-19 Vaccine, re d cap blue label, 12+ Primary Series 12/22/2020,11/24/2020 Social History Tobacco Use Types Packs/Day Years Used Date Smoking Tobacco: Never Assessed Social Connections Answer Date Recorded Social Connections and Isolation 0 11/24/2020 Financial Resource Strain Answer Date R ecorded Financial Resource Strain 0 2020 Stress Answer Date Recorded Stress 0 11/24/2020 Physical Activity Answer Date Recorded Physical Activity 0 11/24/2020 Food Insecurity Answer Date Recorded Food 0 11/24/2020 Transportation Needs Answer Date Record ed Transportation 0 11/24/2020 Housing Stability Answer Date Recorded Housing 0 11/24/2020 Safety and Environment Answer Date Heron rded Safety 0 11/24/2020 Utilities Answer Date Recorded Utilities 0 11/24/2020 Employment Answer Date Recorded Employment 0 11/24/2020 Comments Unknown Sex and Gender Information Value Date Recorded Sex Assigned at Not on file Legal Sex Female 1:11 PM PDT Gender Identity Not on file Sexual Orientation Not on file Plan of Treatment Health Maintenance Due Date Last Done Comments Tobacco Screening 1945 Advanced Care Planning 1945 Hypertension Screening (#1) 1961 Medicare Annual Wellness Visit 1961 Imm-Zoster, Recombinant (1 of 2) 1993 Bone Density Screening 2008 Falls Prevention 2008 Imm-Pneumococcal 65+ (2 of 2 - PPSV23) 08/02/2016 [id number] (3 - season) 2024 021, 11/24/2020 Imm-Influenza (#1) 2024 07/02/2020 Alcohol and Drug Screen 08/13/2024 Depression Annual Screen 08/13/2024 Imm-DTaP/Tdap/Td (2 - Td or Tdap) 03/03/2029 [facility] Insurance [place] MEDICAID Member Subscriber Plan / Payer (Ef fective 2020-Present) Name:Kristan Morel Relation to Subscriber:Self Name:Kristan Morel Payer ID:[id number] Type:Medicaid Address: [address] [id number] MEDICARE - [place]
[2024-11-15 11:25] LABS: Estimated Average Glucose 114 mg/dL; Hemoglobin A1C 143.9047 umol/L; Hemoglobin A1c % 5.6 % (<6.0); Total Hemoglobin (HGBA1C) 3794.7941 umol/L
[2024-11-15 11:53] LABS: Parathyroid Hormone Intact 52.7 pg/mL (8.7-77.1)
[2024-11-15 12:00] LABS: Alanine Aminotransferase 17 U/L (0-31); Albumin Level 4.8 g/dL (3.5-5.0); Alkaline Phosphatase 87 U/L (39-117); Anion Gap 12 (12-20); Aspartate Amino Transferase 31 U/L (5-31); Bilirubin Total 0.7 mg/dL (0.0-1.0); Blood Urea Nitrogen 20 mg/dL (9-16); Calcium 10.4 mg/dL (8.4-10.2); Carbon Dioxide 30 mmol/L (22-29); Chloride 104 mmol/L (96-108); Estimated Glomerular Filt Rate > 60; Glucose Random 114 mg/dL (60-115); Phosphorus 3.9 mg/dL (2.7-4.5); Potassium 3.8 mmol/L (3.3-5.1); Sodium 142 mmol/L (135-145)
== END 2024-11-15 09:50 | disposition home or self-care (01) ==
LOC: HO.LAB 09:49
PROVIDERS: PCP Internal Medicine; Visit Provider Internal Medicine
DX: E11.9 Type 2 diabetes mellitus without complications (principal); E83.52 Hypercalcemia; I10 Essential (primary) hypertension; M67.814 Other specified disorders of tendon, left shoulder
CPT/HCPCS: 36415; 80053; 83036; 83970; 84100

== ENCOUNTER → 2025-03-24 12:37 | Outpatient (REF) | payer OTHER, SELFPAY ==
--- NOTE | 2025-03-24 12:40 | CA_ITS ---
Transthoracic Echocardiogram Patient (Last, First, Middle): Kristan Morel, Gender: Female Date of : 1945 Age: 79 Procedure Date: 03/24/2025 Procedure Type: Transthoracic Echocardiogram Location: OP Height: 157.48 cm Weight: 56.7 kg BSA: 1.57 m2 Heart Rate: bpm BP: 122 / 70 mmHg Superintendent Plant Protection: Referring MD: Simin Ferreira BRAND PLANNERJaxon Symptoms: I42.9 - Cardiomyopathy, unspecified Study Quality: Good ECG Rhythm: Sinus Conclusions: - The left ventricular systolic function is mild to moderately decreased. The calculated ejection fraction is 43% by biplane method. - No obvious valvular pathology seen on this study. - Translucent structure in liver 3.1x2.3cm, probably cyst. Findings Left Ventricle Normal left ventricular cavity size. There is mildly increased left ventricular wall thickness. The left ventricular systolic function is mild to moderately decreased. The calculated ejection fraction is 43% by biplane method. There is moderate global hypokinesis. Evidence suggests grade I (mild) diastolic dysfunction. Right Ventricle Normal right ventricular cavity size and systolic function. Atria The left atrium is severely dilated. The right atrium is normal in size. Aortic Valve There is a normal trileaflet aortic valve. There is no aortic valve stenosis. There is no aortic valve regurgitation. Mitral Valve There is mild mitral annular calcification. There is trace mitral valve regurgitation. There is no mitral valve stenosis. Pulmonic Valve The pulmonic valve is likely normal. Tricuspid Valve Normal tricuspid valve structure. There is trace tricuspid valve regurgitation. There is no evidence of pulmonary hypertension. Great Vessels The asc aorta is normal in size. Venous The inferior vena cava is normal in size and collapses greater than 50% with inspiration. Pericardium/Pleural There is no evidence of pericardial effusion. Recommendations, Care & Conclusions No obvious valvular pathology seen on this study. Measurements 2D Linear Measurements IVSd: 1.05 0.6-0.9/0.6-1.0 cm LVIDd: 5.14 3.9-5.3/4.2-5.9 cm LVIDd Index: 3.27 2.4-3.2/2.2-3.1 cm/m2 LVIDs: 4.39 2.0-3.6 cm LVPWd: 1.06 0.7-1.1 cm Ao Root: 2.70 2.1-3.5 cm LA Diam: 3.80 2.7-3.8/3.0-4.0 cm LAIDs Index: 2.42 1.5-2.3 cm/m2 LV Mass: 255.09 67-162/88-224 g LV Mass Index: 162.48 43-95/49-115 g/m2 LVOT Diam: 2.00 3.0+(-)1.3 cm 2D Systolic Function EF 4C: 46.10 >55% EF 2C: 44.80 >55% EF BiP: 42.70 >55% Mitral Valve MV VTI: 0.34 MV Pk Vincent: 1.29 MV Mn Vincent: 0.69 MV Pk Grad: 7.00 MV Mn Grad: 2.00 MV Pk E: 0.84 MV PK A: 1.17 MV Decel Time: 216.00 E/A: 0.70 E'Lateral: 3.70 E'Medial: 3.59 E/E' Med: 23.50 E/E' Lat: 22.80 PHT: 63.00 MVA PHT: 3.49 MVA Continuity: 1.69 Decel [place]: 3.91 Aortic Valve AoV Pk Vincent: 1.61 AoV Mn Vincent: 1.09 AoV VTI: 0.40 AoV Pk Grad: 10.00 Aov Mn Grad: 6.00 MAHESH Cont.VTI: 1.43 LVOT LVOT Pk Vincent: 0.84 LVOT Mn Vincent: 0.54 LVOT VTI: 0.18 LVOT Pk Grad: 3.00 LVOT Mn Grad: 2.00 LVOT Diam: 2.00 LVOT Area: 3.14 Diastolic Function MV Pk E: 0.84 MV Pk A: 1.17 E/A: 0.70 E'Medial: 3.59 E/E' Med: 23.50 E' Laterial: 3.70 E/E' Lat: 22.80 Right Ventricle TAPSE (mm): 27.00 TVS' Vincent: 11.00 Tricuspid Valve TR Pk Vincent: 2.56 TR Pk Grad: 26.00 RA Press: 3.00 RVSP: 29.00 Great Vessels Aorta Ao Root-2D: 2.70 2.0-3.7 cm Ao Asc: 3.00 2.1-3.4 cm Pulmonary Valve PV Pk Vincent: 0.90 Peak PV Grad: 3.00 Updated in Other Vendor System with Status of Final Lemuel Myers MD electronically signed on 03/24/2025 2:29:42 PM with status of Final
--- OUTSIDE RECORDS SUMMARY | 2025-03-24 13:20 | XMS_ITS | Patient Health Record ---
[facility] Organization [facility] Address [address] [place] [address] Care Team Providers Care Telecommunication Lines Repairer Name Role Phone Frank Polanco Jr [phone] Reason For Referral No Information Plan Of Treatment No Information
== END ==
LOC: HO.CARD 12:37
PROVIDERS: PCP Internal Medicine; Visit Provider Nurse Practitioner Family
DX: I42.9 Cardiomyopathy, unspecified (principal)
CPT/HCPCS: 93306

== ENCOUNTER → 2025-03-24 12:40 | Outpatient (BNV) | payer OTHER, SELFPAY | PROVIDERS: PCP Internal Medicine; Visit Provider Internal Medicine | DX: I42.9 Cardiomyopathy, unspecified (principal) | CPT/HCPCS: 93306 ==

== ENCOUNTER 2025-03-28 07:32 | Outpatient (REF) | payer OTHER, SELFPAY ==
--- OUTSIDE RECORDS SUMMARY | 2025-03-28 07:35 | XMS_ITS | Clinical Summary ---
Author Organization [facility] Address [address] [place] [address] Care Team Providers Care Face Painter Name Role Phone Unavailable Primary Care Provider [...] Density Screening 2008 Falls Prevention 2008 Imm-Pneumococcal 50+ (2 of 2 - PCV20 or PCV21) 08/02/2016 08/02/2015 Imm-RSV (adult) (1 - 1-dose 75+ series) 2018 [id number] (3 - season) 2024 021, 11/24/2020 Alcohol and Drug Screen 08/13/2024 Depression Annual Screen 08/13/2024 Imm-Influenza (#1) 2025 07/02/2020 Imm-DTaP/Tdap/Td (2 - Td or Tdap) 03/03/2029 019 Insurance [place]
--- OUTSIDE RECORDS SUMMARY | 2025-03-28 07:35 | XMS_ITS | Patient Health Record ---
Author Organization [facility] Address [address] [place] [address] Care Team Providers Care Manager Pacu Name Role Phone Frank Polanco Jr Reason For Referral No Information Plan Of Treatment No Information
[2025-03-28 09:04] LABS: Alanine Aminotransferase 14 U/L (0-31); Albumin Level 4.3 g/dL (3.5-5.0); Alkaline Phosphatase 75 U/L (39-117); Anion Gap 12 (12-20); Aspartate Amino Transferase 24 U/L (5-31); Blood Urea Nitrogen 18 mg/dL (9-16); Calcium 9.2 mg/dL (8.4-10.2); Carbon Dioxide 29 mmol/L (22-29); Chloride 108 mmol/L (96-108); Estimated Glomerular Filt Rate > 60; Potassium 4.4 mmol/L (3.3-5.1); Sodium 145 mmol/L (135-145); Total Protein 6.6 g/dL (6.5-8.0)
[2025-03-28 10:03] LABS: Parathyroid Hormone Intact 65.7 pg/mL (8.7-77.1)
== END 2025-03-28 07:33 | disposition home or self-care (01) ==
LOC: HO.LAB 07:32
PROVIDERS: PCP Internal Medicine; Visit Provider Internal Medicine
DX: I10 Essential (primary) hypertension (principal); E11.9 Type 2 diabetes mellitus without complications; E78.00 Pure hypercholesterolemia, unspecified; E83.52 Hypercalcemia
CPT/HCPCS: 36415; 80053; 83970

== ENCOUNTER 2025-04-20 14:59 | Outpatient (AMB) | payer OTHER, SELFPAY ==
--- NOTE | 2025-04-20 15:07 | MHC.OFFVIS ---
Vital Signs 04/20/25 15:08 Height 5 ft 4 in Weight 123 lb 7.342 oz BMI 21.2 BP 138/62 Blood Pressure Location Rt brachial Position Sitting Pulse 78 Pulse Source Pulse Oximeter Intake Visit Reasons: follow up after echo Stone Lathe Operator Required: Yes Stone Lathe Operator Language: [place] Operator Name: voice Allergies codeine Allergy (Unknown, Verified 04/20/25 15:11) UNKNOWN Sulfa (Sulfonamide Antibiotics) Allergy (Unknown, Verified 04/20/25 15:11) RASH FAREED Inhibitors Adverse Reaction (Unknown, Verified 04/20/25 15:11) UNKNOWN Medication List - Last Reconciled 04/20/25 by Simin Ferreira NP-C amlodipine 10 mg PO DAILY aspirin 81 mg PO .daily ezetimibe 10 mg PO DAILY losartan-hydrochlorothiazide 100-25 mg 1 tab PO DAILY metoprolol succinate ER 100 mg PO DAILY nitroglycerin 0.4 mg sublingual Q5M PRN rosuvastatin 40 mg PO BEDTIME HPI HPI follow up after echo: Details: Kristan is a 78-year-old female with past medical history of hypertension, nonischemic cardiomyopathy who presents for follow-up after recent echocardiogram. Today she reports that she has been doing well since her last visit in August.. She denies any chest discomfort at rest with activity. No concerning shortness of breath. No PND, orthopnea or edema. No lightheadedness, presyncope, syncope, falls. Sleeps with 2 pillows. Does light activities around the house and helps take care of her elderly . She does report fatigue. Taking meds as directed. Certified language interpreter used. [facility] Medical History Hypertension Cardiomyopathy Surgical History History of eye surgery History of section Family History Father Cardiovascular disease Mother No problems noted. Social History Alcohol intake: never Patient Tobacco Use Status: Never used Tobacco Current occupational status: disabled Current occupation: rt hand Review of Systems Const All systems reviewed & are unremarkable except as noted in HPI and below ENT Denies dizziness Card Denies chest pain, Denies chest pain at rest, Denies chest pain with activity, Denies rapid heart rate, Denies pedal edema, Denies edema, Denies leg edema, Denies lightheadedness, Denies palpitations, Denies dyspnea, Denies dyspnea on exertion and Denies orthopnea Resp Denies cough, Denies dyspnea and Denies dyspnea on exertion GI Denies hematochezia and Denies change in stool character Musc Denies abnormal gait, Denies limited range of motion, Denies muscle cramps, Denies muscle weakness, Denies numbness, Denies radiating pain into limb, Denies stiffness and Denies tingling Neuro Denies abnormal gait, Denies dizziness, Denies numbness and Denies tingling Endo Denies palpitations Physical Exam Vital Signs: Last Vital Signs Pulse 78 04/20/25 15:08 BP 138/62 04/20/25 15:08 BMI result Body Mass Index 21.2 Const General: cooperative, healthy appearing, comfortable and no acute distress Orientation/consciousness: patient oriented x3 Neck Neck: Yes normal visual inspection Resp Effort & Inspection: normal respiratory effort Auscultation: clear to auscultation bilaterally, no rales, no rhonchi and no wheezes Cardio Jugular venous distension: no JVD Rate: regular rate Rhythm: regular rhythm Heart sounds: S1 normal heart sound present, S2 normal heart sound present, no murmurs and no rubs Neuro General: patient oriented x3 Extrem General: Yes normal to inspection, No no pedal edema and No calf tenderness Psych Appearance: grossly normal Mental Status: mental status grossly normal Speech and movement: Normal speech and movement present Assessment & Plan Assessment & Plan (1) Cardiomyopathy: Comment: Nonischemic cardiomyopathy, NYHA class 1-2. Code(s): I42.9 - Cardiomyopathy, unspecified Category: Medical Plan: History of nonischemic cardiomyopathy with echo 09/09/2021 showing EF 40-45%. A cardiac catheterization had been done on 04/29/2020 showing no significant coronary artery disease. She has been on losartan and metoprolol XL for neurohormonal modulation. She has not had any recent heart failure admissions. Echocardiogram done 03/24/2025 showing EF 43%, unchanged from prior. Labs 03/28/2025 shows potassium 4.4, creatinine 0.64. She does not appear fluid overloaded on exam. Signs and symptoms of heart failure reviewed with her. Will have her continue on current medications without change. Cardiology follow-up will be in 6 months, sooner if needed (2) Hypertension: Comment: Stable Code(s): I10 - Essential (primary) hypertension Category: Medical Plan: Blood pressure goal less than 130/80. Near goal at this time. Reviewed low-salt diet. Continue amlodipine, hydrochlorothiazide/losartan and metoprolol. (3) Liver cyst: Code(s): K76.89 - Other specified diseases of liver Category: Medical Plan: Echocardiogram shows incidental finding of translucent structure in the liver 3.1 x 2.3 cm, probably cyst. No right upper quadrant abdominal discomfort on exam. Reviewed with patient. Will order ultrasound for further evaluation and plan to forward results to her PCP. Will call patient when results known. Plan Time spent on chart review, documentation, interview, assessment Orders: Orders US abdomen limited Today K76.89 - Other specified diseases of liver Coding Level of Care Code Est Pt Level 4 (65856) Complex EM visit Add On G2211 Diagnoses Cardiomyopathy I42.9 Hypertension I10 Liver cyst K76.89 Time Spent (min) 30
[2025-04-20 15:08] VITALS: BP 138/62; PULSE 78; BMI 21.2
--- OUTSIDE RECORDS SUMMARY | 2025-04-20 18:17 | XMS_ITS | Clinical Summary ---
Author Organization [facility] Address [address] [place] [address] Care Team Providers Care Lip Cutter And Scorer Name Role Phone Unavailable Primary Care Provider [...] (adult) (1 - 1-dose 75+ series) 2018 Alcohol and Drug Screen 08/13/2024 Depression Annual Screen 08/13/2024 [id number] (3 - 2024- season) 2025 021, 11/24/2020 Imm-Influenza (#1) 2025 07/02/2020 Imm-DTaP/Tdap/Td (2 - Td or Tdap) 03/03/2029 [facility] Insurance [place]
--- OUTSIDE RECORDS SUMMARY | 2025-04-20 18:17 | XMS_ITS | Patient Health Record ---
Author Organization [facility] Address [address] [place] [address] Care Team Providers Care Industrial Sales Manager Name Role Phone Frank Polanco Jr Reason For Referral No Information Plan Of Treatment No Information
== END 2025-04-20 15:43 | disposition home or self-care (01) ==
LOC: HO.HCS 15:00
PROVIDERS: PCP Internal Medicine; Visit Provider Nurse Practitioner Family
DX: I42.9 Cardiomyopathy, unspecified (principal); I10 Essential (primary) hypertension; K76.89 Other specified diseases of liver
CPT/HCPCS: 99214; G2211

== ENCOUNTER → 2025-04-20 14:59 | Outpatient (BNVA) | payer OTHER, SELFPAY | PROVIDERS: PCP Internal Medicine; Visit Provider Nurse Practitioner Family | DX: I10 Essential (primary) hypertension (principal); I42.9 Cardiomyopathy, unspecified; K76.89 Other specified diseases of liver | CPT/HCPCS: 99212 ==

== ENCOUNTER 2025-06-26 09:49 | Outpatient (REF) | payer OTHER, SELFPAY ==
--- NOTE | ~2025-06-26 | US_ITS ---
CLINICAL HISTORY: K76.89 - LIVER CYST --- Additional Notes or Special Instructions: LIVER Ultrasound US abdomen limited Comparison: None provided Findings: The visualized pancreas is normal. The aorta and inferior vena cava are normal caliber. The appearance of the liver suggests fatty infiltration. There is a possible benign incidental left lobe 2.6 x 2.3 x 2.2 cm cyst. There is no intrahepatic bile duct dilatation. The common duct is 7.0 mm in diameter. There are multiple gallstones. The gallbladder is otherwise normal. There is no sonographic Peguero sign. The main portal vein is antegrade. The right kidney is 11.3 cm in length. There are multiple Bosniak 1 cysts. Largest measures 4.0 x 3.7 x 2.7 cm. No ascites. IMPRESSION: 1. Hepatic steatosis with a possible benign incidental cyst. Comparison with prior studies versus short-term follow-up with ultrasound in 6 months recommended. 2. Cholelithiasis. This document has been electronically signed by: Héctor Celis MD on 06/27/2025 09:49:51
--- OUTSIDE RECORDS SUMMARY | 2025-06-26 11:03 | XMS_ITS | Patient Health Record ---
Author Organization [facility] Address [address] [place] [address] Care Team Providers Care Factory Hand Name Role Phone Frank Polanco Jr Reason For Referral No Information Plan Of Treatment No Information
--- OUTSIDE RECORDS SUMMARY | 2025-06-26 11:03 | XMS_ITS | Clinical Summary ---
Author Organization [facility] Address [address] [place] [address] Care Team Providers Care Document Clerk Name Role Phone Unavailable Primary Care Provider [...] Drug Screen 08/13/2024 Depression Annual Screen 08/13/2024 [id number] (3 - 2024- season) 2025 021, 11/24/2020 Imm-Influenza (#1) 2025 07/02/2020 Imm-DTaP/Tdap/Td (2 - Td or Tdap) 03/03/2029 [facility] Insurance [place]
== END 2025-06-26 09:50 | disposition home or self-care (01) ==
LOC: HO.US 09:49
PROVIDERS: PCP Internal Medicine; Visit Provider Nurse Practitioner Family
DX: K76.89 Other specified diseases of liver (principal)
CPT/HCPCS: 76705

== ENCOUNTER → 2025-06-26 09:51 | Outpatient (BNV) | payer OTHER, SELFPAY | PROVIDERS: PCP Internal Medicine; Visit Provider Specialist | DX: K80.20 Calculus of gallbladder without cholecystitis without obstruction (principal); K76.0 Fatty (change of) liver, not elsewhere classified | CPT/HCPCS: 76705 ==